=== PATIENT | female | born 1940 | race Caucasian/White ===

== ENCOUNTER 2017-12-05 12:37 | Inpatient (IN) | payer MEDICARE, OTHER ==
[~2017-12-05] VITALS: Ht 144.8 cm; Wt 77.1 kg
[2017-12-05] VITALS (9 sets, daily range): BP systolic 121–160; BP diastolic 57–67; PULSE 70–87; RESP 14–18; TEMP 97.7–98.3; O2SAT 97–100
[~2017-12-05 12:37] MED LIST: ATOR10 PO; BECL80AE3 INH; CALTTAB5 PO; CETI10 PO; COLE1TAB PO; FEXO180 PO; GLIM2TAB PO; IRONCAP PO; JANU50TA9 PO; OMEG120017 PO; PRIL40CA PO; RANI1TAB7 PO; TAB-TAB PO; TOPR50TA PO; VITA100017 PO
[2017-12-05 14:11] LABS: AUTOMATED NEUTROPHIL # 2.2 TH/MM3 (1.8-7.7); BASOPHIL % 1.3 % (0.0-2.0); EOSINOPHIL # 0.1 TH/MM3 (0-0.4); EOSINOPHIL % 1.5 % (0.0-4.0); HEMATOCRIT 22.6 % (35.0-46.0); LYMPH % 21.2 % (9.0-44.0); LYMPHOCYTE # 0.7 TH/MM3 (1.0-4.8); MEAN CORPUSCULAR HEMOGLOBIN 20.6 PG (27.0-34.0); MONO % 12.7 % (0.0-8.0); MONOCYTE # 0.4 TH/MM3 (0-0.9); NEUT % 63.3 % (16.0-70.0); PLATELET COUNT 102 TH/MM3 (150-450); RED BLOOD COUNT 3.28 MIL/MM3 (4.00-5.30); RED CELL DISTRIBUTION WIDTH 18.4 % (11.6-17.2); WHITE BLOOD COUNT 3.5 TH/MM3 (4.0-11.0)
[2017-12-05 14:12] LABS: MEAN CORPUSCULAR HGB CONC 29.9 % (32.0-36.0)
[2017-12-05 14:16] LABS: HEMOGLOBIN 6.8 GM/DL (11.6-15.3)
[2017-12-05 14:22] LABS: BACTERIA, URINE MANY /hpf; BILIRUBIN, URINE NEG (NEG); BLOOD, URINE NEG (NEG); GLUCOSE,URINE NEG (NEG); KETONE, URINE NEG (NEG); MUCUS URINE FEW /lpf (OCC); NITRITE,URINE POS (NEG); SQUAMOUS EPITHELIAL CELL URINE 5 /hpf (0-5); URINE COLOR YELLOW (YELLW/STRAW); URINE LEUKOCYTE ESTERASE MOD (NEG)
[2017-12-05 14:26] LABS: ALBUMIN 3.1 GM/DL (3.4-5.0); ALT (GPT) 50 U/L (10-53); AST (GOT) 48 U/L (15-37); BICARBONATE 20.2 MEQ/L (21.0-32.0); BLOOD UREA NITROGEN 12 MG/DL (7-18); CALCIUM 8.5 MG/DL (8.5-10.1); CHLORIDE 110 MEQ/L (98-107); CREATININE 0.89 MG/DL (0.50-1.00); GLOMERULAR FILTRATION RATE 62 ML/MIN (>89); GLUCOSE,RANDOM 199 MG/DL (74-106); SODIUM (NA) 141 MEQ/L (136-145)
[2017-12-05 14:27] LABS: INTERNATIONAL NORMALIZED RATIO 1.1 RATIO; PROTHROMBIN TIME - PATIENT 11.5 SEC (9.8-11.6)
[2017-12-05 14:37] LABS: ALKALINE PHOSPHATASE 108 U/L (45-117); TOTAL BILIRUBIN ADULT 1.1 MG/DL (0.2-1.0); TOTAL PROTEIN 6.7 GM/DL (6.4-8.2); TROPONIN I LESS THAN 0.02 NG/ML (0.02-0.05)
--- NOTE | 2017-12-05 14:39 | RADRPT ---
EXAM DATE/TIME: 12/05/2017 14:19 [place] COMPARISON: No previous studies available for comparison. INDICATIONS : Short of breath. MEDICAL HISTORY : Asthma. GAVE or watermelon stomach SURGICAL HISTORY : None. ENCOUNTER: Initial ACUITY: 1 day PAIN SCORE: 0/10 LOCATION: Bilateral chest FINDINGS: There is mild focal parenchymal opacity in the right middle lobe. Left lung is grossly clear. No effu denilson present. Cardiac contours are satisfactory. Thoracic skeleton is grossly intact. CONCLUSION: Mild right middle lobe infiltrate. Leonard Borja MD on December 05, 2017 at 14:36 Board Certified Radiologist. This report was verified electronically.
[2017-12-05] MEDS ORDERED: SODIUM CHLOR 0.9% 250 ML INJ 250 ML IV ONE (17:30)
[2017-12-05] MEDS ORDERED: cefTRIAXone INJ 1,000 MG in SODIUM CHLORIDE 0.9% INJ 100 ML IV ONE (17:30)
[2017-12-05] MEDS ORDERED: PANTOPRAZOLE INJ 80 MG in SODIUM CHLORIDE 0.9% INJ 100 ML IV SCH (17:36)
[2017-12-05] MEDS ORDERED: PANTOPRAZOLE INJ 80 MG in SODIUM CHLORIDE 0.9% INJ 35 ML IV ONE (17:36)
--- NOTE | 2017-12-05 17:54 | PD ---
HPI Chief Complaint: General Weakness Time Seen by Provider: 17:28 Travel History International Travel<30 days: No Contact w/Intl Traveler<30days: No Traveled to known affect area: No History of Present Illness HPI 76-year-old female states she has been feeling short of breath when she walks, tired and progressively weak over the past couple of weeks. She states she has a history of bleeding in her stomach and feels similar to how she felt then. She states her GI specialist is Dr. Martell in [place]. She denies other significant concurrent complaints at this time. She states when this happened in 2013 she had a blood transfusion and had cauterization of her stomach. She feels worse when she moves around. She denies other modifying factors. Quality is tired. Location is generalized. PFSH Past Medical History Arthritis: Yes Asthma: Yes Autoimmune Disease: No Blood Disorders: No Anxiety: Yes Depression: Yes Heart Rhythm Problems: Yes (A-FIB "EVENT" 2005) Cancer: No Cardiovascular Problems: No High Cholesterol: No Chest Pain: No Congestive Heart Failure: No COPD: No Cerebrovascular Accident: No Diabetes: Yes Endocrine: No Gastrointestinal Disorders: Yes (REFLUX, HX OF GI BLEEDS ) GERD: Yes Genitourinary: No (bladder suspension sx x 2 ) Hepatitis: No Hiatal Hernia: No Hypertension: Yes Immune Disorder: No Implanted Vascular Access Dvce: Yes Kidney Stones: No Musculoskeletal: Yes (ARTHRITIS, Rt TKR ) Neurologic: No Psychiatric: Yes Reproductive: Yes (hysterectomy ) Respiratory: Yes Migraines: No Renal Failure: No Seizures: No Sleep Apnea: No Thyroid Disease: No Ulcer: Yes (ONE ESOPHAGEAL ULCER RELATED TO GERD) : 4 Para: 4 Miscarriage: 0 : 0 Past Surgical History Abdominal Surgery: Yes (ANNETTE., ABDOMINOPLASTY) AICD: No Body Medical Devices: Right knee replacement Cardiac Surgery: Yes (RIGHT KNEE REPLACEMENT 2008) Ear Surgery: No Endocrine Surgery: No Eye Surgery: No Genitourinary Surgery: Yes (BLADDER SUSPENSION 1983) Gynecologic Surgery: Yes (HYSTERECTOMY, BLADDER SUSP.) Hysterectomy: Yes Insulin Pump: No Joint Replacement: Yes (RIGHT KNEE) Oral Surgery: No Pacemaker: No Thoracic Surgery: No Other Surgery: Yes Social History Alcohol Use: No Tobacco Use: No Substance Use: No Allergies-Medications (Allergen,Severity, Reaction): Coded Allergies: Sulfa (Sulfonamide Antibiotics) (Unverified Allergy, Severe, HIVES, ) candesartan (Unverified Allergy, Severe, HIVES, 07/12/17) escitalopram (Unverified Allergy, Severe, PALPITATIONS, 07/12/17) insulin aspart (Unverified Allergy, Severe, HIVES, 07/12/17) AFTER TAKING LEVIMIR FOR 1 MONTH AND ANY OTHER "PEN" INSULINS PT DEVELOPS HIVES insulin aspart protamine human (Unverified Allergy, Severe, HIVES, 07/12/17 ) AFTER TAKING LEVIMIR FOR 1 MONTH AND ANY OTHER "PEN" INSULINS PT DEVELOPS HIVES insulin detemir (Unverified Allergy, Severe, HIVES, 07/12/17) AFTER TAKING LEVIMIR FOR 1 MONTH AND ANY OTHER "PEN" INSULINS PT DEVELOPS HIVES insulin glargine (Unverified Allergy, Severe, HIVES, 07/12/17) AFTER TAKING LEVIMIR FOR 1 MONTH AND ANY OTHER "PEN" INSULINS PT DEVELOPS HIVES insulin isophane (NPH) (Unverified Allergy, Severe, HIVES, 07/12/17) AFTER TAKING LEVIMIR FOR 1 MONTH AND ANY OTHER "PEN" INSULINS PT DEVELOPS HIVES insulin lispro (Unverified Allergy, Severe, HIVES, 07/12/17) AFTER TAKING LEVIMIR FOR 1 MONTH AND ANY OTHER "PEN" INSULINS PT DEVELOPS HIVES insulin regular (Unverified Allergy, Severe, HIVES, 07/12/17) AFTER TAKING LEVIMIR FOR 1 MONTH AND ANY OTHER "PEN" INSULINS PT DEVELOPS HIVES lisinopril (Unverified Allergy, Severe, HIVES, 07/12/17) valsartan (Unverified Allergy, Severe, HIVES, 07/12/17) aliskiren (Unverified Allergy, Intermediate, Hives, 07/12/17) carvedilol (Unverified Adverse Reaction, Intermediate, PALPITATIONS, ) Reported Meds & Prescriptions Reported Meds & Active Scripts Active Reported Vitamin C (Ascorbic Acid) 1,000 Mg Tab 1,000 Mg PO DAILY Qvar (Beclomethasone Dipropionate) 80 Mcg/Act Aer 1 Puff INH BID Iron Formula (Iron W/ Folic Acid & Vit B12) Cap 65 Mg PO DAILY Calcium (Calcium Carbonate) 600 Mg Tab 600 Mg PO BID Fish Oil Maximum Strength ([place]-3 Fatty Acids) 1,200 Mg Cap 1,200 Mg PO BID Zyrtec 10 Mg Tab (Cetirizine HCl) 10 Mg Tab 10 Mg PO DAILY Ranitidine 150 Max Strength (Ranitidine HCl) 150 Mg Tab 1 Tab PO DAILY Prilosec 40 mg cap (Omeprazole) 40 Mg Cap 40 Mg PO BID Toprol Xl (Metoprolol Succinate) 50 Mg Tabcr 50 Mg PO BID Janumet (Sitagliptin Phosphate/Metformin HCl) 1 Tab Tab 1 Tab PO HS Glimepiride 2 Mg Tab 2 Mg PO BID Luiza Allergy (Fexofenadine Hcl) 180 Mg Tab 180 Mg PO DAILY PRN Lipitor (Atorvastatin Calcium) 10 Mg Tab 5 Mg PO DAILY Colestid (Colestipol HCl) 1 Gm Tab 1 Gm PO BID Multivitamin (Multivitamins) 1 Tab Tab 1 Tab PO DAILY Review of Systems Except as stated in HPI: all other systems reviewed are Neg Physical Exam Narrative GENERAL: Well-nourished, well-developed patient. Well-appearing SKIN: Warm and dry. HEAD: Normocephalic and atraumatic. EYES: No injection or drainage. ENT: No nasal drainage noted. NECK: Supple, trachea midline. CARDIOVASCULAR: Regular rate and rhythm RESPIRATORY: Breath sounds equal bilaterally. No accessory muscle use. GASTROINTESTINAL: Abdomen soft, non-tender, nondistended. RECTAL EXAM: Performed with terminal makeup operator and after permission. No external hemorrhoid or fissure, stool is brown, non-bloody. NEUROLOGICAL: Awake and alert. Motor and sensory grossly within normal limits. Normal speech. Data Data Last Documented VS Vital Signs Date Time Temp Pulse Resp B/P (MAP) Pulse Ox O2 Delivery O2 Flow Rate FiO2 12/05/17 12:40 97.7 87 16 160/67 (98) 97 Orders Orders Electrocardiogram (12/05/17 13:21) Prothrombin Time / Inr (Pt) (12/05/17 13:21) Act Partial Throm Time (Ptt) (12/05/17 13:21) Complete Blood Count With Diff (12/05/17 13:21) Comprehensive Metabolic Panel (12/05/17 13:21) Troponin I (12/05/17 13:21) Thyroid Stimulating Hormone (12/05/17 13:21) Free Thyroxine (T4) (12/05/17 13:21) Urinalysis - C+S If Indicated (12/05/17 13:21) Chest, Pa & Lat (12/05/17 ) B-Type Natriuretic Peptide (12/05/17 13:23) Urine Culture (12/05/17 13:45) Red Blood Cells (Rbc) (12/05/17 17:28) Blood Product Administration (12/05/17 17:28) Sodium Chlor 0.9% 250 Ml Inj (Ns 250 Ml (12/05/17 17:30) Ceftriaxone Inj (Rocephin Inj) (12/05/17 17:30) Type And Screen (12/05/17 17:28) Sodium Chloride 0.9... W/Pantoprazole In (12/05/17 17:36) Sodium Chloride 0.9... W/Pantoprazole In (12/05/17 17:36) Admit Order (Ed Use Only) (12/05/17 17:46) Labs Laboratory Tests Test 12/05/17 13:45 White Blood Count 3.5 TH/MM3 Red Blood Count 3.28 MIL/MM3 Hemoglobin 6.8 GM/DL Hematocrit 22.6 % Mean Corpuscular Volume 69.0 FL Mean Corpuscular Hemoglobin 20.6 PG Mean Corpuscular Hemoglobin Concent 29.9 % Red Cell Distribution Width 18.4 % Platelet Count 102 TH/MM3 Mean Platelet Volume 11.0 FL Neutrophils (%) (Auto) 63.3 % Lymphocytes (%) (Auto) 21.2 % Monocytes (%) (Auto) 12.7 % Eosinophils (%) (Auto) 1.5 % Basophils (%) (Auto) 1.3 % Neutrophils # (Auto) 2.2 TH/MM3 Lymphocytes # (Auto) 0.7 TH/MM3 Monocytes # (Auto) 0.4 TH/MM3 Eosinophils # (Auto) 0.1 TH/MM3 Basophils # (Auto) 0.0 TH/MM3 CBC Comment AUTO DIFF Differential Comment AUTO DIFF CONFIRMED Platelet Estimate LOW Platelet Morphology Comment ENLARGED Prothrombin Time 11.5 SEC Prothromb Time International Ratio 1.1 RATIO Activated Partial Thromboplast Time 19.1 SEC Urine Color YELLOW Urine Turbidity HAZY Urine pH 6.0 Urine Specific [place] 1.022 Urine Protein 30 mg/dL Urine Glucose (UA) NEG mg/dL Urine Ketones NEG mg/dL Urine Occult Blood NEG Urine Nitrite POS Urine Bilirubin NEG Urine Urobilinogen LESS THAN 2.0 MG/DL Urine Leukocyte Esterase MOD Urine RBC 2 /hpf Urine WBC 17 /hpf Urine Squamous Epithelial Cells 5 /hpf Urine Bacteria MANY /hpf Urine Mucus FEW /lpf Microscopic Urinalysis Comment CULTURE INDICATED Blood Urea Nitrogen 12 MG/DL Creatinine 0.89 MG/DL Random Glucose 199 MG/DL Total Protein 6.7 GM/DL Albumin 3.1 GM/DL Calcium Level 8.5 MG/DL Alkaline Phosphatase 108 U/L Aspartate Amino Transf (AST/SGOT) 48 U/L Alanine Aminotransferase (ALT/SGPT) 50 U/L Total Bilirubin 1.1 MG/DL Sodium Level 141 MEQ/L Potassium Level 4.0 MEQ/L Chloride Level 110 MEQ/L Carbon Dioxide Level 20.2 MEQ/L Anion Gap 11 MEQ/L Estimat Glomerular Filtration Rate 62 ML/MIN Troponin I LESS THAN 0.02 NG/ML Free Thyroxine 1.30 NG/DL Thyroid Stimulating Hormone 3rd Gen 1.890 uIU/ML MDM Medical Decision Making Medical Screen Exam Complete: Yes Emergency Medical Condition: Yes Medical Record Reviewed: Yes (past history confirmed) Interpretation(s) CBC & BMP Diagram 12/05/17 13:45 Total Protein 6.7, Albumin 3.1 L, Calcium Level 8.5, Alkaline Phosphatase 108, Aspartate Amino Transf (AST/SGOT) 48 H, Alanine Aminotransferase (ALT/SGPT) 50, Total Bilirubin 1.1 H UA with UTI Last 24 hours Impressions Chest X-Ray 12/05/17 0000 Signed Impressions: Service Date/Time: Tuesday, December 05, 2017 14:19 - CONCLUSION: Mild right middle lobe infiltrate. Leonard Borja MD Differential Diagnosis GI bleed, renal failure, anemia, UTI... Narrative Course Workup from triage reveals possible pneumonia and urinary tract infection. Patient was given Rocephin and azithromycin to cover for both. Patient also has critical anemia at 6.8. We'll place on Protonix and start 2 units of blood. We'll admit to the hospital for further care. Patient is in agreement to plan Critical Care Narrative Aggregate critical care time was 31 minutes. Time to perform other separately billable procedures was not included in the critical care time. My time did not include minutes spent treating any other patients simultaneously or on activities that did not directly contribute to the patient's treatment. The services I provided to this patient were to treat and/or prevent clinically significant deterioration that could result in: Shock, I provided critical care services requiring my management, as noted below: Chart data review, documentation time, medication orders and management, vital sign assessments/reviewing monitor data, ordering and reviewing lab tests, ordering and interpreting/reviewing x-rays and diagnostic studies, care of the patient and discussion of the patient with the admitting physicians. Physician Communication Physician Communication dr roach agrees to admit Diagnosis Primary Impression: GI (gastrointestinal bleed) Qualified Codes: K92.2 - Gastrointestinal hemorrhage, unspecified Additional Impressions: Anemia Qualified Codes: D64.9 - Anemia, unspecified UTI (urinary tract infection) Qualified Codes: N39.0 - Urinary tract infection, site not specified Pulmonary infiltrate in right lung on CXR Admitting Information Admitting Physician Requests: Admit Marzena Espinoza MD Dec 05, 2017 17:54
[2017-12-05] MEDS ORDERED: VITA250C3 PO (18:00)
[2017-12-05] MEDS ORDERED: AZITHROMYCIN INJ 500 MG in SODIUM CHLOR 0.9% 250 ML INJ 250 ML IV ONE (18:00)
[2017-12-05] MEDS ORDERED: ONDANSETRON HCL 4 MG/2 ML VIAL IVP PRN (18:00)
[2017-12-05] MEDS ORDERED: BECL80AE3 INH (18:00)
[2017-12-05] MEDS ORDERED: SPIR25TA PO (18:00)
[2017-12-05] MEDS ORDERED: COLE1TAB2 PO (18:00)
[2017-12-05] MEDS ORDERED: MAGNESIUM HYDROXIDE SUSP 30 ML CUP PO PRN (18:00)
[2017-12-05] MEDS ORDERED: BYST10TA2 PO (18:00)
[2017-12-05] MEDS ORDERED: DICY20TA10 PO (18:00)
[2017-12-05] MEDS ORDERED: RANI150T PO (18:00)
[2017-12-05] MEDS ORDERED: ZOFR4TAB PO (18:00)
[2017-12-05] MEDS ORDERED: MONT10TA4 PO (18:00)
[2017-12-05] MEDS ORDERED: SODIUM CHLORIDE 0.9% FLUSH 10 ML FLUSH IV FLUSH PRN (18:00)
[2017-12-05] MEDS ORDERED: ALBUAER3 INH (18:00)
[2017-12-05] MEDS ORDERED: zyrtec PO (18:00)
[2017-12-05] MEDS ORDERED: LACTULOSE SYRUP 20 GM/30 ML CUP PO PRN (18:00)
[2017-12-05] MEDS ORDERED: OMEP40CA2 PO (18:00)
[2017-12-05] MEDS ORDERED: GLIM4TAB PO (18:00)
[2017-12-05] MEDS ORDERED: ATOR10TA15 PO (18:00)
[2017-12-05] MEDS ORDERED: ACETAMINOPHEN 325 MG TAB PO PRN (18:00)
[2017-12-05] MEDS ORDERED: SITA50TA4 PO (18:00)
[2017-12-05] MEDS ORDERED: BISACODYL 10 MG SUPP RECTAL PRN (18:00)
[2017-12-05] MEDS ORDERED: NALOXONE HCL 0.4 MG/ML AMP IV PUSH PRN (18:00)
[2017-12-05] MEDS ORDERED: SENNOSIDES 8.6 MG TAB PO PRN (18:00)
[2017-12-05] MEDS ORDERED: OMEGCAP PO (18:00)
[2017-12-05] MEDS ORDERED: [UNRECOGNIZED DRUG - OTHER] (18:01)
[2017-12-05] MEDS: PANTOPRAZOLE SOD 40 MG DELAYED RELEASE TAB PO SCH (23:08)
[2017-12-05] MEDS: SODIUM CHLORIDE 0.9% FLUSH 10 ML FLUSH IV FLUSH SCH (23:09)
--- NOTE | 2017-12-05 23:40 | HHI.HP ---
HPI Service [facility] Primary Care Physician Nery Rivera D.O. Admission Diagnosis anemia, uti, gi bleed Diagnoses: Travel History International Travel<30 Days: No Contact w/Intl Traveler <30 Da: No Traveled to Known Affected Are: No History of Present Illness History from patient, ER notes, review of medical records. 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 no blood in urine no nausea or vomiting not on blood thinners no abdominal pain Review of Systems Except as stated in HPI: all other systems reviewed are Neg Past Family Social History Past Medical History hyperlipidemia htn dm afib- DR Leone - not on blood thinners per patient due to GI bleed, low platelets pancytopenia- used to follow up with DR Munoz - till 2014 asthma cirrhosis hypersplenism hepatosplenomegaly hx of CVA by imaging studies Past Surgical History Right knee replacements in 2008 EGD/colonoscopy Cholecystectomy 1981 Abdominoplasty Hysterectomy Bladder suspension surgery Allergies: Coded Allergies: Sulfa (Sulfonamide Antibiotics) (Unverified Allergy, Severe, HIVES, 12/05/17 ) candesartan (Unverified Allergy, Severe, HIVES, 12/05/17) escitalopram (Unverified Allergy, Severe, PALPITATIONS, 12/05/17) insulin aspart (Unverified Allergy, Severe, HIVES, 12/05/17) AFTER TAKING LEVIMIR FOR 1 MONTH AND ANY OTHER "PEN" INSULINS PT DEVELOPS HIVES insulin aspart protamine human (Unverified Allergy, Severe, HIVES, 12/05/17) AFTER TAKING LEVIMIR FOR 1 MONTH AND ANY OTHER "PEN" INSULINS PT DEVELOPS HIVES insulin detemir (Unverified Allergy, Severe, HIVES, 12/05/17) AFTER TAKING LEVIMIR FOR 1 MONTH AND ANY OTHER "PEN" INSULINS PT DEVELOPS HIVES insulin glargine (Unverified Allergy, Severe, HIVES, 12/05/17) AFTER TAKING LEVIMIR FOR 1 MONTH AND ANY OTHER "PEN" INSULINS PT DEVELOPS HIVES insulin isophane (NPH) (Unverified Allergy, Severe, HIVES, 12/05/17) AFTER TAKING LEVIMIR FOR 1 MONTH AND ANY OTHER "PEN" INSULINS PT DEVELOPS HIVES insulin lispro (Unverified Allergy, Severe, HIVES, 12/05/17) AFTER TAKING LEVIMIR FOR 1 MONTH AND ANY OTHER "PEN" INSULINS PT DEVELOPS HIVES insulin regular (Unverified Allergy, Severe, HIVES, 12/05/17) AFTER TAKING LEVIMIR FOR 1 MONTH AND ANY OTHER "PEN" INSULINS PT DEVELOPS HIVES lisinopril (Unverified Allergy, Severe, HIVES, 12/05/17) valsartan (Unverified Allergy, Severe, HIVES, 12/05/17) aliskiren (Unverified Allergy, Intermediate, Hives, 12/05/17) carvedilol (Unverified Adverse Reaction, Intermediate, PALPITATIONS, ) Family History multiple members with heart dx Social History used to smoke , quit 1970 no etoh abuse or drug abuse lives with still driving Physical Exam Vital Signs Vital Signs Date Time Temp Pulse Resp B/P (MAP) Pulse Ox O2 Delivery O2 Flow Rate FiO2 12/05/17 23:32 12/05/17 23:05 98.3 74 14 125/60 99 12/05/17 22:35 98.2 75 14 121/59 99 12/05/17 22:05 98.3 71 14 122/61 99 12/05/17 21:35 98.1 76 14 148/65 100 12/05/17 21:20 98.1 74 14 131/63 100 12/05/17 21:05 98.3 70 14 132/60 99 12/05/17 20:50 98.3 72 14 132/59 99 12/05/17 12:40 97.7 87 16 160/67 (98) 97 Physical Exam GENERAL: This is a well-nourished, well-developed patient, in no apparent distress. SKIN: No rashes, ecchymoses or lesions. Cool and dry. HEAD: Atraumatic. Normocephalic. No temporal or scalp tenderness. EYES: No scleral icterus. No injection or drainage. ENT: Nose without bleeding, purulent drainage or septal hematoma. Airway patent. NECK: Trachea midline. No JVD CARDIOVASCULAR: Regular rate and rhythm without murmurs, gallops, or rubs. RESPIRATORY: Clear to auscultation. Breath sounds equal bilaterally. No wheezes , rales, or rhonchi. GASTROINTESTINAL: Abdomen soft, non-tender, nondistended.. No guarding. Hepatosplenomegaly MUSCULOSKELETAL: Extremities without clubbing, cyanosis, or edema. . No calf tenderness. NEUROLOGICAL: Awake and alert. No focal deficits. Normal speech. Hard of hearing. Laboratory Laboratory Tests Test 12/05/17 13:45 White Blood Count 3.5 Red Blood Count 3.28 Hemoglobin 6.8 Hematocrit 22.6 Mean Corpuscular Volume 69.0 Mean Corpuscular Hemoglobin 20.6 Mean Corpuscular Hemoglobin Concent 29.9 Red Cell Distribution Width 18.4 Platelet Count 102 Mean Platelet Volume 11.0 Neutrophils (%) (Auto) 63.3 Lymphocytes (%) (Auto) 21.2 Monocytes (%) (Auto) 12.7 Eosinophils (%) (Auto) 1.5 Basophils (%) (Auto) 1.3 Neutrophils # (Auto) 2.2 Lymphocytes # (Auto) 0.7 Monocytes # (Auto) 0.4 Eosinophils # (Auto) 0.1 Basophils # (Auto) 0.0 CBC Comment AUTO DIFF Differential Comment AUTO DIFF CONFIRMED Platelet Estimate LOW Platelet Morphology Comment ENLARGED Prothrombin Time 11.5 Prothromb Time International Ratio 1.1 Activated Partial Thromboplast Time 19.1 Urine Color YELLOW Urine Turbidity HAZY Urine pH 6.0 Urine Specific [place] 1.022 Urine Protein 30 Urine Glucose (UA) NEG Urine Ketones NEG Urine Occult Blood NEG Urine Nitrite POS Urine Bilirubin NEG Urine Urobilinogen LESS THAN 2.0 Urine Leukocyte Esterase MOD Urine RBC 2 Urine WBC 17 Urine Squamous Epithelial Cells 5 Urine Bacteria MANY Urine Mucus FEW Microscopic Urinalysis Comment CULTURE INDICATED Blood Urea Nitrogen 12 Creatinine 0.89 Random Glucose 199 Total Protein 6.7 Albumin 3.1 Calcium Level 8.5 Alkaline Phosphatase 108 Aspartate Amino Transf (AST/SGOT) 48 Alanine Aminotransferase (ALT/SGPT) 50 Total Bilirubin 1.1 Sodium Level 141 Potassium Level 4.0 Chloride Level 110 Carbon Dioxide Level 20.2 Anion Gap 11 Estimat Glomerular Filtration Rate 62 Troponin I LESS THAN 0.02 B-Type Natriuretic Peptide 280 Free Thyroxine 1.30 Thyroid Stimulating Hormone 3rd Gen 1.890 Date/Time Source Procedure Growth Status 12/05/17 18:20 Blood Peripheral Aerobic Blood Culture Pending Received 12/05/17 18:20 Blood Peripheral Anaerobic Blood Culture Pending Received 12/05/17 13:45 Urine Clean Catch Urine Culture Pending Received Result Diagram: 12/05/17 1345 12/05/17 1345 Imaging Last 48 hours Impressions Chest X-Ray 12/05/17 0000 Signed Impressions: Service Date/Time: Tuesday, December 05, 2017 14:19 - CONCLUSION: Mild right middle lobe infiltrate. Lenoard Borja MD [place] VTE Risk Assessment [place] VTE Risk Assessment: Mod/High Risk (score >= 2) Caprini Risk Assessment Model Point Value = 1 Point Value = 2 Point Value = 3 Point Value = 5 Age 41-60 Minor surgery BMI > 25 kg/m2 Swollen legs Varicose veins or History of unexplained or recurrent spontaneous Oral contraceptives or hormone replacement Sepsis (< 1 month) Serious lung disease, including pneumonia (< 1 month) Abnormal pulmonary function Acute myocardial infarction Congestive heart failure (< 1 month) History of inflammatory bowel disease Medical patient at bed rest Age 61-74 Arthroscopic surgery Major open surgery (> 45 min) Laparoscopic surgery (> 45 min) Malignancy Confined to bed (> 72 hours) Immobilizing plaster cast Central venous access Age >= 75 History of VTE Family history of VTE Factor V Leiden Prothrombin [id number] Lupus anticoagulant Anticardiolipin antibodies Elevated serum homocysteine Heparin-induced thrombocytopenia Other congenital or acquired thrombophilia Stroke (< 1 month) Elective arthroplasty Hip, pelvis, or leg fracture Acute spinal cord injury (< 1 month) Prophylaxis Regimen Total Risk Factor Score Risk Level Prophylaxis Regimen 0-1 Low Early ambulation 2 Moderate Order ONE of the following: *Sequential Compression Device (SCD) *Heparin 5000 units SQ BID 3-4 Higher Order ONE of the following medications: *Heparin 5000 units SQ TID *Enoxaparin/Lovenox 40 mg SQ daily (WT < 150 kg, CrCl > 30 mL/min) *Enoxaparin/Lovenox 30 mg SQ daily (WT < 150 kg, CrCl > 10-29 mL/min) *Enoxaparin/Lovenox 30 mg SQ BID (WT < 150 kg, CrCl > 30 mL/min) AND/OR *Sequential Compression Device (SCD) 5 or more Highest Order ONE of the following medications: *Heparin 5000 units SQ TID (Preferred with Epidurals) *Enoxaparin/Lovenox 40 mg SQ daily (WT < 150 kg, CrCl > 30 mL/min) *Enoxaparin/Lovenox 30 mg SQ daily (WT < 150 kg, CrCl > 10-29 mL/min) *Enoxaparin/Lovenox 30 mg SQ BID (WT < 150 kg, CrCl > 30 mL/min) AND *Sequential Compression Device (SCD) Assessment and Plan Assessment and Plan Impression: Symptomatic anemia. Possible GI bleed. Pancytopenia. Chronic. hyperlipidemia htn dm afib- DR Leone - not on blood thinners per patient due to GI bleed, low platelets pancytopenia- used to follow up with DR Munoz - till 2014 asthma cirrhosis hypersplenism hepatosplenomegaly hx of CVA by imaging studies Plan: PPI. GI consulted. Watch for fluid overload. Patient is currently receiving blood transfusion. Type and screen. Transfuse for 2 units of PRBC. Hold long-acting insulin and oral hypoglycemics. Monitor fingersticks closely. Resume other home meds DVT prophylaxis with SCD. Discussed Condition With patient, nursing staff Physician Certification 2 Midnight Certification Type: Admission for Inpatient Services Order for Inpatient Services The services are ordered in accordance with Medicare regulations or non- Medicare payer requirements, as applicable. In the case of services not specified as inpatient-only, they are appropriately provided as inpatient services in accordance with the 2-midnight benchmark. Estimated LOS (days): 2 days is the estimated time the patient will need to remain in the hospital, assuming treatment plan goals are met and no additional complications. Post-Hospital Plan: Home Abbi Gibbs MD Dec 05, 2017 23:40
[2017-12-06] VITALS (14 sets, daily range): BP systolic 103–149; BP diastolic 50–65; PULSE 69–78; RESP 16–18; TEMP 97.2–98.3; O2SAT 94–99
[2017-12-06] MEDS ORDERED: DEXTROSE 50% IN WATER 50 ML VIAL(D50) IV PUSH PRN ×2 (01:30→07:45)
[2017-12-06] MEDS ORDERED: ONDANSETRON ODT 4 MG TAB PO PRN (01:30)
[2017-12-06] MEDS ORDERED: GLUCAGON 1 MG/ML VIAL OTHER PRN ×2 (01:30→07:45)
[2017-12-06] MEDS: SODIUM CHLORIDE 0.9% FLUSH 10 ML FLUSH IV FLUSH SCH ×2 (07:45→20:29)
[2017-12-06] MEDS: INSULIN ASPART SUPPLEMENTAL SCALE SQ SCH ×4 (08:00→20:30)
[2017-12-06] MEDS: SPIRONOLACTONE 25 MG TAB PO SCH (08:26)
[2017-12-06] MEDS: PANTOPRAZOLE SOD 40 MG DELAYED RELEASE TAB PO SCH ×2 (08:26→20:28)
[2017-12-06 10:26] LABS: AUTOMATED NEUTROPHIL # 2.2 TH/MM3 (1.8-7.7); BASOPHIL % 1.1 % (0.0-2.0); EOSINOPHIL # 0.1 TH/MM3 (0-0.4); EOSINOPHIL % 2.6 % (0.0-4.0); HEMATOCRIT 27.8 % (35.0-46.0); HEMOGLOBIN 8.7 GM/DL (11.6-15.3); LYMPH % 27.6 % (9.0-44.0); LYMPHOCYTE # 1.1 TH/MM3 (1.0-4.8); MEAN CELL VOLUME 72.3 FL (80.0-100.0); MEAN CORPUSCULAR HEMOGLOBIN 22.7 PG (27.0-34.0); MEAN CORPUSCULAR HGB CONC 31.4 % (32.0-36.0); MEAN PLATELET VOLUME 10.5 FL (7.0-11.0); MONO % 11.9 % (0.0-8.0); MONOCYTE # 0.5 TH/MM3 (0-0.9); NEUT % 56.8 % (16.0-70.0); PLATELET COUNT 84 TH/MM3 (150-450); RED BLOOD COUNT 3.84 MIL/MM3 (4.00-5.30); WHITE BLOOD COUNT 3.9 TH/MM3 (4.0-11.0)
[2017-12-06 10:49] LABS: BICARBONATE 20.6 MEQ/L (21.0-32.0); CALCIUM 8.6 MG/DL (8.5-10.1); CREATININE 0.75 MG/DL (0.50-1.00)
[2017-12-06] MEDS: DICYCLOMINE HCL 20 MG TAB PO SCH ×3 (10:51→17:17)
[2017-12-06] MEDS: BECLOMETHASONE DIPROPIONATE 80 MCG/ACT 8.7 GM INHALER INH SCH ×2 (10:51→20:28)
[2017-12-06] MEDS: COLESTIPOL HCL 5 GM PACKET PO SCH ×2 (10:51→21:28)
--- NOTE | 2017-12-06 11:17 | HHI.PR ---
Subjective Remarks Follow up Symptomatic Anemia 12/06/17-patient seen and examined, Denies any GI bleed and she was transfused 2 units PRBC Objective Vitals Vital Signs Date Time Temp Pulse Resp B/P (MAP) Pulse Ox O2 Delivery O2 Flow Rate FiO2 12/06/17 04:00 98.1 73 18 103/50 (67) 94 12/06/17 03:50 98.0 78 18 138/61 97 12/06/17 03:47 Room Air 12/06/17 03:47 71 12/06/17 00:50 98.0 78 18 136/65 97 12/06/17 00:50 76 12/06/17 00:41 98.3 75 18 133/61 97 12/06/17 00:00 98.3 75 18 133/61 97 12/06/17 00:00 98.0 78 16 131/57 (81) 97 12/05/17 23:58 98.0 79 18 131/57 97 12/05/17 23:32 12/05/17 23:05 98.3 74 14 125/60 99 12/05/17 22:35 98.2 75 14 121/59 99 12/05/17 22:05 98.3 71 14 122/61 99 12/05/17 21:35 98.1 76 14 148/65 100 12/05/17 21:20 98.1 74 14 131/63 100 12/05/17 21:05 98.3 70 14 132/60 99 12/05/17 20:50 98.3 72 14 132/59 99 12/05/17 12:40 97.7 87 16 160/67 (98) 97 I/O 12/05/17 12/05/17 12/05/17 12/06/17 12/06/17 12/06/17 07:00 15:00 23:00 07:00 15:00 23:00 Intake Total 415 ml 1500 ml Output Total 1400 ml Balance 415 ml 100 ml Intake IV Total 385 ml Packed Cells 1500 ml Blood Product IV Normal Saline Flush 30 ml Output Urine Total 1400 ml Result Diagram: 12/06/1791912/06/17919 Imaging Last Impressions Chest X-Ray 12/05/17 0000 Signed Impressions: Service Date/Time: Tuesday, December 05, 2017 14:19 - CONCLUSION: Mild right middle lobe infiltrate. Leonard Borja MD Objective Remarks GENERAL: NAD SKIN: Warm and dry. HEAD: Normocephalic. EYES: No scleral icterus. No injection or drainage. NECK: Supple, trachea midline. No JVD or lymphadenopathy. CARDIOVASCULAR: Regular rate and rhythm without murmurs, gallops, or rubs. RESPIRATORY: Breath sounds equal bilaterally. No accessory muscle use. GASTROINTESTINAL: Abdomen soft, non-tender, nondistended. MUSCULOSKELETAL: No cyanosis, or edema. BACK: Nontender without obvious deformity. No CVA tenderness. A/P Problem List: (1) Symptomatic anemia ICD Code: D64.9 - Anemia, unspecified (2) GI bleeding ICD Code: K92.2 - Gastrointestinal hemorrhage, unspecified Status: Acute Assessment and Plan 76 years old female with Symptomatic anemia. Possible GI bleeding Transfused 2 units PRBC and monitor H/H GI consultation pending for possible Panendoscopy Continue with PPI Keep NPO Pancytopenia. Chronic and Follow up with Hematology outpatient Other chronic medical conditions including Hyperlipidemia/HTN/COPD Continue with outpatient medications Diabetes Mellitus Continue to hold Oral hypoglycemic agents caution with ISS. I had a discussion with the patient regarding her alleged allergy to Insulin, however states she can tolerate a low dose ISS Afib- DR Leone - not on blood thinners per patient due to GI bleed, low platelets Cirrhosis /Hypersplenism Hepatosplenomegaly hx of CVA by imaging studies DVT prophylaxis with SCD. GI prophylaxis: PPI Conner Cr MD Dec 06, 2017 11:17
[2017-12-06] MEDS ORDERED: PROPOFOL 200 MG/20 ML AMP IV ONE (12:00)
[2017-12-06] MEDS ORDERED: ePHEDrine/NS 25 MG/5 ML SYRINGE IV ONE (12:00)
[2017-12-06 12:09] LABS: OVALOCYTES 1+ (NORMAL); TEARDROP RBCS 1+ (NORMAL)
--- NOTE | 2017-12-06 12:34 | MB ---
cc: AILEEN ELDRIDGE SUNIL P. M.D. OUNG, TWETHIDA MD DATE OF CONSULTATION: 12/06/2017 DATE OF : 1940 REASON FOR CONSULTATION Asked to see the patient at the request of Dr. Gibbs for evaluation of anemia. HISTORY OF PRESENT ILLNESS The patient is a pleasant 76-year-old white female who in 2016 had an upper endoscopy and colonoscopy. The colonoscopy revealed adenomatous colon polyp and upper endoscopy showed watermelon stomach. She subsequently underwent upper endoscopy with Argon plasma cautery of the situation in the stomach. Unfortunately, over the last several weeks she has been feeling weak and tired and she came to the emergency room and hemoglobin was 6.8. She was heme-positive but had no black or red stools, stools are brown, per the patient. The patient was short of breath and dizzy but now after receiving blood she is doing quite well. A posttransfusion hemoglobin is still pending. The patient denies any dysphagia, odynophagia, nausea, vomiting, melena, hematochezia, diarrhea, constipation or fever or chills at this time. PAST MEDICAL HISTORY Significant for: 1. Pancytopenia. 2. Atrial fibrillation but she is not on any medication for this. 3. Diabetes mellitus. 4. Dyslipidemia. 5. Hypertension. 6. Asthma. 7. Hypersplenism. 8. Hepatosplenomegaly. 9. There is some question of cirrhosis (I have not been able to review old records yet). 10. She has also had CVA. 11. As mentioned above she has had colon polyps as well as watermelon stomach. PAST SURGICAL HISTORY 1. Upper endoscopy and colonoscopy. 2. She has had right knee replacement. 3. Cholecystectomy. 4. Abdominoplasty. 5. Bladder suspension. 6. Hysterectomy. ALLERGIES She has multiple allergies including SULFA, CANDESARTAN, ESCITALOPRAM, LEVEMIR, LISINOPRIL, VALSARTAN, CARVEDILOL, ALISKIREN. FAMILY HISTORY Noncontributory for this admission. SOCIAL HISTORY Quit smoking in the late 70s, smoked a number of years. Drinks no significant amounts of alcohol at this time. REVIEW OF SYSTEMS CONSTITUTIONAL: No weight loss, fever, chills. CARDIOPULMONARY: No chest pain, palpitations, wheezing. Her shortness of breath is better. GASTROINTESTINAL: Please see above. Otherwise, unremarkable ten-point review of systems. PHYSICAL EXAMINATION VITAL SIGNS: Blood pressure is 103/50, pulse 73, respiratory rate of 18, temperature 98.1. GENERAL: She is overweight white female resting comfortably at this time. No acute GI distress. HEENT: Pupils are equal, round and reactive to light. No obvious scleral icterus. Oropharynx clear, has dental caries. No tongue deviation or candidal lesion. Hearing is intact. NECK: Supple. No thyromegaly or lymphadenopathy. LUNGS: Clear to auscultation. HEART: Irregular rate and rhythm. No gross murmurs are heard. ABDOMEN: Soft, doughy, nondistended, nontender. No organomegaly. No ascites or hernias. EXTREMITIES: No cyanosis, clubbing or edema. Cranial nerves II-XII are grossly intact. No gross sensory deficit. RECTAL: I did not repeat a rectal exam on her. Apparently, in the emergency room it was heme positive. The stool is brown color. NEUROLOGIC: She is alert and oriented x 3. SKIN: Warm and dry. MEDICATION Outpatient: 1. Vitamin C. 2. Qvar. 3. Iron. 4. Calcium. 5. Fish oil. 6. Zyrtec. 7. Ranitadine. 8. Prilosec. 9. Toprol. 10. Janumet. 11. Glimepiride. 12. Luiza. 13. Lipitor. 14. Colestid. 15. Multivitamin. Inpatient medication: 1. Lipitor. 2. Singulair. 3. Bystolic. 4. Pepcid. 5. Qvar. 6. Bentyl. 7. Aldactone. 8. Colestipol. 9. NovoLog. 10. Glucagon. 11. Zofran. 12. Pantoprazole. 13. Milk of Magnesia. 14. Senokot. 15. Dulcolax. 16. Lactulose. IMPRESSION 1. Anemia with heme-positive stools - suspect this is related to her watermelon stomach. Other etiologies also include AVMs, ulcers, polyps, malignancies. Her last colonoscopy was 2015, so I think the chance of colon cancer is lower differential. The patient has anemia as mentioned above - she has been transfused blood, awaiting posttransfusion CBC. 2. adenomatous colon polyp. 3. History watermelon stomach. RECOMMENDATIONS 1. The patient does need upper endoscopy with APC. She is currently n.p.o. and would like to get it done in the hospital. We did talk about indications, risks, complications, benefits and limitation including risk of bleeding, perforation, infection, arrhythmias, as well as the possibility of . 2. We will see if the schedule allows today, if not today, we will do it tomorrow. 3. Further recommendations after upper endoscopy is done inpatient. MD CORINA Montana/TLL /10:23 AM /12:03 PM MTDD
[2017-12-06] MEDS ORDERED: POVIDONE IODINE 5% (ANTISEPSIS KIT) 4 APPLICATIONS EACH NARE PRN (15:00)
[2017-12-06] MEDS ORDERED: METOPROLOL TARTRATE 25 MG TAB PO PRN (15:00)
[2017-12-06] MEDS ORDERED: SODIUM CHLORID 0.9% 500 ML IV PRN (15:00)
[2017-12-06] MEDS ORDERED: CHLORHEXIDINE GLUCONATE 2 % 1 PACK (2 CLOTHS) TOPICAL PRN (15:00)
[2017-12-06] MEDS ORDERED: LACTATED RINGER'S 1000 ML IV PRN (15:00)
--- NOTE | 2017-12-06 15:20 | GIPROC ---
[facility] [address] [facility]. [facility], [address] EGD PROCEDURE REPORT EXAM DATE: 12/06/2017 PATIENT NAME: Natalia Rivera MR #: [id number] BIRTHDATE: 1940 ATTENDING: Steven Tomlinson MD ORDER #: [id number] PLUMBER'S ASSISTANT: Geri Gonsales and Miguel A Hallman STATUS: inpatient INDICATIONS: The patient is a 76 yr old female here for an EGD due to OB+ stools, Anemia, Hx of GAVE PROCEDURE PERFORMED: EGD w/ control of bleeding MEDICATIONS: None and Per Anesthesia. TOPICAL ANESTHETIC: none CONSENT: The patient understands the risks and benefits of the procedure and understands that these risks include, but are not limited to: sedation, allergic reaction, infection, perforation and/or bleeding. Alternative means of evaluation and treatment include, among others: physical exam, x-rays, and/or surgical intervention. The patient elects to proceed with this endoscopic procedure. medical equipment was checked for proper function. Hand hygiene and appropriate measures for infection prevention was taken. After the risks, benefits and alternatives of the procedure were thoroughly explained, Informed consent was verified, confirmed and timeout was successfully executed by the treatment team. The patient was anesthetized with topical anesthesia and the Pentax [id number] endoscope was introduced through the mouth and advanced to the third portion of the duodenum. Retroflexion was performed and was normal The gastroscope was then slowly withdrawn and removed. 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 Possible small grade I esophageal varicies were noted at the distal esophagus. 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 IMPRESSIONS: 1. 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 Possible small grade I esophageal varicies were noted at the distal esophagus 3. 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 Retroflexion was performed and was normal 5. Doudenitis of bulb RECOMMENDATIONS: 1. Hematocrit 2. Carafate 1 gm po qid ac PATIENT CONDITION: stable DISPOSITION: Inpatient REPEAT EXAM: Return 2 months EGD Steven Tomlinson MD eSigned: Steven Tomlinson MD 12/06/2017 3:19 PM cc: PATIENT NAME: Mohit Riveraline Karen MR#: [id number]
[2017-12-06] MEDS ORDERED: FLUMAZENIL 0.5 MG/5 ML VIAL IV PUSH PRN ×2 (15:30)
[2017-12-06] MEDS ORDERED: NALOXONE HCL 0.4 MG/ML AMP IV PUSH PRN (15:30)
[2017-12-06] MEDS: SUCRALFATE 1 GM TAB PO SCH ×2 (16:32→20:28)
[2017-12-06] MEDS: FAMOTIDINE 20 MG TAB PO SCH (20:27)
[2017-12-06] MEDS: NEBIVOLOL 10 MG TAB PO SCH (20:27)
[2017-12-06] MEDS: MONTELUKAST SODIUM 10 MG TAB PO SCH (20:28)
[2017-12-06] MEDS: ATORVASTATIN 10 MG TAB PO SCH (20:28)
--- NOTE | 2017-12-06 22:08 | EKG ---
Date Performed: 12/05/2017 Time Performed: 14:39:03 PTAGE: 76 years EKG: Sinus rhythm MINIMAL ST DEPRESSION BORDERLINE ECG PREVIOUS TRACING : 03/28/2014 16.48 Compared to prior tracing no significant change DOCTOR: Radhames Leigh Interpretating Date/Time 12/06/2017 22:07:09
[2017-12-07] VITALS (8 sets, daily range): BP systolic 101–151; BP diastolic 51–71; PULSE 66–82; RESP 16–21; TEMP 98.1–98.8; O2SAT 92–97
[2017-12-07] MEDS: INSULIN ASPART SUPPLEMENTAL SCALE SQ SCH ×4 (08:00→21:00)
[2017-12-07] MEDS: COLESTIPOL HCL 5 GM PACKET PO SCH ×2 (09:00→21:00)
[2017-12-07] MEDS: SODIUM CHLORIDE 0.9% FLUSH 10 ML FLUSH IV FLUSH SCH ×2 (09:00→21:32)
[2017-12-07] MEDS: cefTRIAXone INJ 1,000 MG in SODIUM CHLORIDE 0.9% INJ 100 ML IV SCH (10:00)
[2017-12-07] MEDS: SUCRALFATE 1 GM TAB PO SCH ×4 (10:14→21:00)
[2017-12-07] MEDS: SPIRONOLACTONE 25 MG TAB PO SCH (10:15)
[2017-12-07] MEDS: PANTOPRAZOLE SOD 40 MG DELAYED RELEASE TAB PO SCH ×2 (10:15→21:31)
[2017-12-07] MEDS: DICYCLOMINE HCL 20 MG TAB PO SCH ×3 (10:15→19:03)
[2017-12-07 13:07] LABS: AUTOMATED NEUTROPHIL # 2.8 TH/MM3 (1.8-7.7); BASOPHIL % 0.9 % (0.0-2.0); EOSINOPHIL # 0.1 TH/MM3 (0-0.4); EOSINOPHIL % 2.3 % (0.0-4.0); HEMOGLOBIN 9.1 GM/DL (11.6-15.3); LYMPH % 20.9 % (9.0-44.0); LYMPHOCYTE # 0.9 TH/MM3 (1.0-4.8); MEAN CELL VOLUME 72.8 FL (80.0-100.0); MEAN CORPUSCULAR HEMOGLOBIN 22.9 PG (27.0-34.0); MEAN CORPUSCULAR HGB CONC 31.5 % (32.0-36.0); MEAN PLATELET VOLUME 10.1 FL (7.0-11.0); MONO % 13.5 % (0.0-8.0); MONOCYTE # 0.6 TH/MM3 (0-0.9); NEUT % 62.4 % (16.0-70.0); PLATELET COUNT 85 TH/MM3 (150-450); RED BLOOD COUNT 3.98 MIL/MM3 (4.00-5.30); RED CELL DISTRIBUTION WIDTH 21.7 % (11.6-17.2); WHITE BLOOD COUNT 4.5 TH/MM3 (4.0-11.0)
[2017-12-07 13:10] LABS: BICARBONATE 24.6 MEQ/L (21.0-32.0); CALCIUM 8.5 MG/DL (8.5-10.1); CREATININE 0.78 MG/DL (0.50-1.00)
--- NOTE | 2017-12-07 17:26 | HHI.PR ---
Subjective Remarks Follow up Symptomatic Anemia 12/06/17-patient seen and examined, Denies any GI bleed and she was transfused 2 units PRBC 12-07 HAD PROCEDURE EGD ON 12-06 1. 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 Possible small grade I esophageal varicies were noted at the distal esophagus 3. 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 Retroflexion was performed and was normal 5. Doudenitis of bulb Objective Vitals Vital Signs Date Time Temp Pulse Resp B/P (MAP) Pulse Ox O2 Delivery O2 Flow Rate FiO2 12/07/17 16:00 98.3 66 20 125/58 (80) 97 12/07/17 12:00 98.1 66 20 135/62 (86) 95 12/07/17 11:16 21 12/07/17 08:00 98.1 75 20 103/53 (70) 92 12/07/17 08:00 82 12/07/17 08:00 96 Room Air 12/07/17 05:00 73 12/07/17 04:00 Room Air 12/07/17 04:00 98.4 71 16 101/71 (81) 94 12/07/17 00:00 98.5 82 16 108/51 (70) 94 12/07/17 00:00 Room Air 12/06/17 23:50 69 12/06/17 20:00 98.1 74 16 149/65 (93) 99 12/06/17 20:00 Room Air 12/06/17 19:59 75 I/O 12/06/17 12/06/17 12/06/17 12/07/17 12/07/17 12/07/17 07:00 15:00 23:00 07:00 15:00 23:00 Intake Total 1500 ml 670 ml 240 ml Output Total 1400 ml 500 ml Balance 100 ml 670 ml -260 ml Intake Oral 420 ml 240 ml Packed Cells 1500 ml Other 250 ml Output Urine Total 1400 ml 500 ml # Voids 5 2 # Bowel Movements 2 Result Diagram: 12/07/17 1140 12/07/17 1140 Other Results Laboratory Tests Test 12/05/17 13:45 12/06/17 09:20 12/07/17 11:40 White Blood Count 3.5 TH/MM3 3.9 TH/MM3 4.5 TH/MM3 Red Blood Count 3.28 MIL/MM3 3.84 MIL/MM3 3.98 MIL/MM3 Hemoglobin 6.8 GM/DL 8.7 GM/DL 9.1 GM/DL Hematocrit 22.6 % 27.8 % 29.0 % Mean Corpuscular Volume 69.0 FL 72.3 FL 72.8 FL Mean Corpuscular Hemoglobin 20.6 PG 22.7 PG 22.9 PG Mean Corpuscular Hemoglobin Concent 29.9 % 31.4 % 31.5 % Red Cell Distribution Width 18.4 % 21.0 % 21.7 % Platelet Count 102 TH/MM3 84 TH/MM3 85 TH/MM3 Mean Platelet Volume 11.0 FL 10.5 FL 10.1 FL Neutrophils (%) (Auto) 63.3 % 56.8 % 62.4 % Lymphocytes (%) (Auto) 21.2 % 27.6 % 20.9 % Monocytes (%) (Auto) 12.7 % 11.9 % 13.5 % Eosinophils (%) (Auto) 1.5 % 2.6 % 2.3 % Basophils (%) (Auto) 1.3 % 1.1 % 0.9 % Neutrophils # (Auto) 2.2 TH/MM3 2.2 TH/MM3 2.8 TH/MM3 Lymphocytes # (Auto) 0.7 TH/MM3 1.1 TH/MM3 0.9 TH/MM3 Monocytes # (Auto) 0.4 TH/MM3 0.5 TH/MM3 0.6 TH/MM3 Eosinophils # (Auto) 0.1 TH/MM3 0.1 TH/MM3 0.1 TH/MM3 Basophils # (Auto) 0.0 TH/MM3 0.0 TH/MM3 0.0 TH/MM3 CBC Comment AUTO DIFF AUTO DIFF AUTO DIFF Differential Comment AUTO DIFF CONFIRMED AUTO DIFF CONFIRMED AUTO DIFF CONFIRMED Platelet Estimate LOW LOW LOW Platelet Morphology Comment ENLARGED ENLARGED NORMAL Prothrombin Time 11.5 SEC Prothromb Time International Ratio 1.1 RATIO Activated Partial Thromboplast Time 19.1 SEC Urine Color YELLOW Urine Turbidity HAZY Urine pH 6.0 Urine Specific [place] 1.022 Urine Protein 30 mg/dL Urine Glucose (UA) NEG mg/dL Urine Ketones NEG mg/dL Urine Occult Blood NEG Urine Nitrite POS Urine Bilirubin NEG Urine Urobilinogen LESS THAN 2.0 MG/DL Urine Leukocyte Esterase MOD Urine RBC 2 /hpf Urine WBC 17 /hpf Urine Squamous Epithelial Cells 5 /hpf Urine Bacteria MANY /hpf Urine Mucus FEW /lpf Microscopic Urinalysis Comment CULTURE INDICATED Blood Urea Nitrogen 12 MG/DL 14 MG/DL 8 MG/DL Creatinine 0.89 MG/DL 0.75 MG/DL 0.78 MG/DL Random Glucose 199 MG/DL 72 MG/DL 134 MG/DL Total Protein 6.7 GM/DL Albumin 3.1 GM/DL Calcium Level 8.5 MG/DL 8.6 MG/DL 8.5 MG/DL Alkaline Phosphatase 108 U/L Aspartate Amino Transf (AST/SGOT) 48 U/L Alanine Aminotransferase (ALT/SGPT) 50 U/L Total Bilirubin 1.1 MG/DL Sodium Level 141 MEQ/L 141 MEQ/L 141 MEQ/L Potassium Level 4.0 MEQ/L 3.7 MEQ/L 3.7 MEQ/L Chloride Level 110 MEQ/L 109 MEQ/L 109 MEQ/L Carbon Dioxide Level 20.2 MEQ/L 20.6 MEQ/L 24.6 MEQ/L Anion Gap 11 MEQ/L 11 MEQ/L 7 MEQ/L Estimat Glomerular Filtration Rate 62 ML/MIN 75 ML/MIN 72 ML/MIN Troponin I LESS THAN 0.02 NG/ML B-Type Natriuretic Peptide 280 PG/ML Free Thyroxine 1.30 NG/DL Thyroid Stimulating Hormone 3rd Gen 1.890 uIU/ML Tear Drop Cells 1+ Ovalocytes 1+ Imaging Last Impressions Chest X-Ray 12/05/17 0000 Signed Impressions: Service Date/Time: Tuesday, December 05, 2017 14:19 - CONCLUSION: Mild right middle lobe infiltrate. Leonard Borja MD Objective Remarks GENERAL: Awake alert oriented talkative and cooperative SKIN: Warm and dry. HEAD: Atraumatic. Normocephalic. EYES: Pupils equal and round. No scleral icterus. No injection or drainage. Extraocular muscles intact ENT: No nasal bleeding or discharge. Mucous membranes pink and moist. Tongue is midline NECK: Trachea midline. No JVD. Supple CARDIOVASCULAR: Regular rate and rhythm. S1 and S2 no S3 or S4 RESPIRATORY: No accessory muscle use. Clear to auscultation. Breath sounds equal bilaterally. GASTROINTESTINAL: Abdomen soft, non-tender, nondistended. Hepatic and splenic margins not palpable. MUSCULOSKELETAL: Extremities without clubbing, cyanosis, or edema. No obvious deformities. NEUROLOGICAL: Awake and alert. No obvious cranial nerve deficits. Motor grossly within normal limits. 4 out of 5 muscle strength in the arms and legs. Normal speech. PSYCHIATRIC: Appropriate mood and affect; insight and judgment normal. Procedures EGD PROCEDURE REPORT EXAM DATE: 12/06/2017 PATIENT NAME: Natalia Rivera MR #: [id number] BIRTHDATE: 1940 ATTENDING: Steven Tomlinson MD ORDER #: [id number] REVIEW NURSE: Geri Gonsales and Miguel A Hallman STATUS: inpatient INDICATIONS: The patient is a 76 yr old female here for an EGD due to OB+ stools, Anemia, Hx of GAVE PROCEDURE PERFORMED: EGD w/ control of bleeding MEDICATIONS: None and Per Anesthesia. TOPICAL ANESTHETIC: none CONSENT: The patient understands the risks and benefits of the procedure and understands that these risks include, but are not limited to: sedation, allergic reaction, infection, perforation and/or bleeding. Alternative means of evaluation and treatment include, among others: physical exam, x-rays, and/or surgical intervention. The patient elects to proceed with this endoscopic procedure. medical equipment was checked for proper function. Hand hygiene and appropriate measures for infection prevention was taken. After the risks, benefits and alternatives of the procedure were thoroughly explained, Informed consent was verified, confirmed and timeout was successfully executed by the treatment team. The patient was anesthetized with topical anesthesia and the Pentax [id number] endoscope was introduced through the mouth and advanced to the third portion of the duodenum. Retroflexion was performed and was normal The gastroscope was then slowly withdrawn and removed. 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 Possible small grade I esophageal varicies were noted at the distal esophagus. 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 IMPRESSIONS: 1. 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 Possible small grade I esophageal varicies were noted at the distal esophagus 3. 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 Retroflexion was performed and was normal 5. Doudenitis of bulb RECOMMENDATIONS: 1. Hematocrit 2. Carafate 1 gm po qid ac PATIENT CONDITION: stable DISPOSITION: Inpatient REPEAT EXAM: Return 2 months EGD Medications and IVs Current Medications Sodium Chloride 250 ml @ 15 mls/hr ONCE ONCE IV ; Start 12/05/17 at 17:30; Stop 12/06/17 at 10:09; Status DC Ceftriaxone Sodium 1000 mg/ Sodium Chloride 100 ml @ 200 mls/hr ONCE ONCE IV Last administered on 12/05/17at 17:51; Start 12/05/17 at 17:30; Stop 12/05/17 at 17: 59; Status DC Pantoprazole Sodium 80 mg/ Sodium Chloride 35 ml @ 420 mls/hr Q5M ONCE IV Last administered on 12/05/17at 20:19; Start 12/05/17 at 17:36; Stop 12/05/17 at 17: 40; Status DC Pantoprazole Sodium 80 mg/ Sodium Chloride 100 ml @ 10 mls/hr Q10H IV ; Start 12/05/17 at 17:36; Stop 12/05/17 at 17:53; Status DC Azithromycin 500 mg/Sodium Chloride 250 ml @ 250 mls/hr ONCE ONCE IV Last administered on 12/05/17at 18:40; Start 12/05/17 at 18:00; Stop 12/05/17 at 18:59; Status DC Sodium Chloride (NS Flush) 2 ml UNSCH PRN IV FLUSH FLUSH AFTER USING IV ACCESS Last administered on 12/05/17at 20:19; Start 12/05/17 at 18:00 Sodium Chloride (NS Flush) 2 ml BID IV FLUSH Last administered on 12/06/17at 20: 29; Start 12/05/17 at 21:00 Acetaminophen (Tylenol) 650 mg Q4H PRN PO Headache, fever, pain 1-4; Start 12/05 at 18:00 Ondansetron HCl (Zofran Inj) 4 mg Q6H PRN IVP NAUSEA OR VOMITING; Start at 18:00 Naloxone HCl (Narcan Inj) 0.4 mg UNSCH PRN IV PUSH SEE LABEL COMMENTS; Start at 18:00 Magnesium Hydroxide (Milk Of Magnesia Liq) 30 ml Q12H PRN PO Mild constipation ; Start 12/05/17 at 18:00 Sennosides (Senokot) 17.2 mg Q12H PRN PO Moderate constipation; Start 12/05/17 at 18:00 Bisacodyl (Dulcolax Supp) 10 mg DAILY PRN RECTAL SEVERE CONSITIPATION; Start at 18:00 Lactulose (Lactulose Liq) 30 ml DAILY PRN PO SEVERE CONSITIPATION; Start at 18:00 Pantoprazole Sodium (Protonix) 40 mg Q12HR PO Last administered on 12/07/17at 10 :15; Start 12/05/17 at 21:00 Dextrose (D50w (Vial) Inj) 50 ml UNSCH PRN IV PUSH HYPOGLYCEMIA-SEE COMMENTS; Start 12/06/17 at 01:30; Stop 12/06/17 at 08:35; Status DC Glucagon (Glucagon Inj) 1 mg UNSCH PRN OTHER HYPOGLYCEMIA-SEE COMMENTS; Start 12/06/17 at 01:30; Stop 12/06/17 at 08:35; Status DC Atorvastatin Calcium (Lipitor) 5 mg HS PO Last administered on 12/06/17at 20:28 ; Start 12/06/17 at 21:00 Beclomethasone Dipropionate (Qvar 80 Mcg Inh) 2 puff BID INH Last administered on 12/06/17at 20:28; Start 12/06/17 at 09:00 Dicyclomine HCl (Bentyl) 20 mg TID PO Last administered on 12/07/17at 10:15; Start 12/06/17 at 09:00 Montelukast Sodium (Singulair) 10 mg HS PO Last administered on 12/06/17at 20:28 ; Start 12/06/17 at 21:00 Nebivolol (Bystolic) 10 mg HS PO Last administered on 12/06/17at 20:27; Start at 21:00 Spironolactone (Aldactone) 25 mg DAILY PO Last administered on 12/07/17at 10:15 ; Start 12/06/17 at 09:00 Colestipol HCl (Colestipol Pkt) 1 gm BID PO Last administered on 12/06/17at 21: 28; Start 12/06/17 at 09:00 Ondansetron HCl (Zofran Odt) 4 mg Q6HR PRN PO NAUSEA OR VOMITING; Start at 01:30 Famotidine (Pepcid) 20 mg HS PO Last administered on 12/06/17at 20:27; Start 09/13 at 21:00 Dextrose (D50w (Vial) Inj) 50 ml UNSCH PRN IV PUSH HYPOGLYCEMIA-SEE COMMENTS; Start 12/06/17 at 07:45 Glucagon (Glucagon Inj) 1 mg UNSCH PRN OTHER HYPOGLYCEMIA-SEE COMMENTS; Start 12/06/17 at 07:45 Insulin Aspart (NovoLOG SUPPLEMENTAL SCALE) 1 ACHS SLIDING SCALE SQ ; Start 09/13 at 08:00 Lactated Ringer's 1,000 ml @ 30 mls/hr Q24H PRN IV SEE LABEL COMMENTS; Start at 15:00; Stop 12/09/17 at 14:59 Sodium Chloride 500 ml @ 30 mls/hr [id number] PRN IV SEE LABEL COMMENTS; Start 09/13 at 15:00; Stop 12/09/17 at 14:59 Metoprolol Tartrate (Lopressor) 25 mg PORTER SAMPLE CASE PRN PO SEE LABEL COMMENTS; Start 12/06/17 at 15:00; Stop 12/09/17 at 14:59 Povidone Iodine (Betadine 5% Antisepsis Kit) 1 applic PORTER SAMPLE CASE PRN EACH NARE SEE LABEL COMMENTS; Start 12/06/17 at 15:00; Stop 12/09/17 at 14:59 Chlorhexidine Gluconate (Chlorhexidine 2% Cloth) 3 pack PORTER SAMPLE CASE PRN TOPICAL SEE LABEL COMMENTS; Start 12/06/17 at 15:00; Stop 12/09/17 at 14:59 Flumazenil (Romazicon Inj) 0.2 mg UNSCH X1 PRN IV PUSH OVERSEDATION; Start 09/13 at 15:30; Stop 12/07/17 at 15:29; Status DC Flumazenil (Romazicon Inj) 0.2 mg Q1M PRN IV PUSH OVERSEDATION; Start 12/06/17 at 15:30; Stop 12/07/17 at 15:29; Status DC Naloxone HCl (Narcan Inj) 0.1 mg Q2M PRN IV PUSH OVERSEDATION; Start 12/06/17 at 15:30; Stop 12/07/17 at 15:29; Status DC Sucralfate (Carafate) 1 gm ACHS PO Last administered on 12/07/17at 12:00; Start 12/06/17 at 17:00 Ceftriaxone Sodium 1000 mg/ Sodium Chloride 100 ml @ 200 mls/hr Q24H IV Last administered on 12/07/17at 10:00; Start 12/07/17 at 10:00 A/P Problem List: (1) Symptomatic anemia ICD Code: D64.9 - Anemia, unspecified (2) GI bleeding ICD Code: K92.2 - Gastrointestinal hemorrhage, unspecified Status: Acute Assessment and Plan 76 years old female with Symptomatic anemia. Possible GI bleeding Transfused 2 units PRBC and monitor H/H GI consultation pending for possible Panendoscopy Continue with PPI Status post EGD 1. 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 Possible small grade I esophageal varicies were noted at the distal esophagus 3. 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 Retroflexion was performed and was normal 5. Doudenitis of bulb Pancytopenia. Chronic and Follow up with Hematology outpatient Other chronic medical conditions including Hyperlipidemia/HTN/COPD Continue with outpatient medications Diabetes Mellitus Continue to hold Oral hypoglycemic agents caution with ISS. I had a discussion with the patient regarding her alleged allergy to Insulin, however states she can tolerate a low dose ISS Afib- DR Leone - not on blood thinners per patient due to GI bleed, low platelets Cirrhosis /Hypersplenism Hepatosplenomegaly hx of CVA by imaging studies DVT prophylaxis with SCD. GI prophylaxis: PPI Discharge Planning PENDING GI CLEARANCE AND LAB STABILITY Jason Davis DO Dec 07, 2017 17:25
--- NOTE | 2017-12-07 18:19 | HHI.GIFU ---
GI Follow-up Note Consult Follow-up Subjective: Patient laying in bed comfortably. Tolerating diet. No N/V. No overt GI bleeding Objective: PHYSICAL EXAMINATION: Vitals signs stable No fever NECK: Neck is supple, no JVD, no lymphadenopathy. CHEST: Chest is clear to auscultation and percussion. CARDIAC: Regular rate and rhythm with no murmur gallop or rubs. ABDOMEN: Soft, nondistended, nontender; no hepatosplenomegaly; bowel sounds are present in all four quadrants. EXTREMITIES: No edema. SKIN: no jaundice. CRYSTAL GRINDER: alert and oriented times three. Available Data (labs, X- Rays, Procedues) : Hgb 9.1 ASSESSMENT/PLAN: 1. Anemia/OB+ stools 2. GAVE-s/p APC cautery 3. hx of colon polyps PLAN: 1. Advance diet 2. When tolerating diet and H-H stable pt may be D/C on a PPI and carafate. 3. F/U EGD/APC in the nextb1-2 months It was a pleasure seeing Natalia Rivera Thank you for this consult. Entered by: Steven Martin MD Dec 07, 2017 18:19
[2017-12-07] MEDS: BECLOMETHASONE DIPROPIONATE 80 MCG/ACT 8.7 GM INHALER INH SCH (21:00)
[2017-12-07] MEDS: ATORVASTATIN 10 MG TAB PO SCH (21:31)
[2017-12-07] MEDS: FAMOTIDINE 20 MG TAB PO SCH (21:31)
[2017-12-07] MEDS: guaiFENesin E.R. 600 MG TAB PO SCH (21:31)
[2017-12-07] MEDS: NEBIVOLOL 10 MG TAB PO SCH (21:31)
[2017-12-07] MEDS: MONTELUKAST SODIUM 10 MG TAB PO SCH (21:31)
--- NOTE | 2017-12-07 21:56 | RADRPT ---
EXAM DATE/TIME: 12/07/2017 20:51 [facility] COMPARISON: CHEST PA & LAT, December 05, 2017, 14:19. INDICATIONS : Shortness of breath; pneumonia. MEDICAL HISTORY : Diabetes mellitus type II. Asthma. SURGICAL HISTORY : None acutely relevant ENCOUNTER: Subsequent ACUITY: 3 days PAIN SCORE: 0/10 LOCATION: Bilateral chest FINDINGS: A persistent approximately 1.5 x 3 cm parenchymal opacity is again seen of the right lung base. I bel ieve it is in the lower lobe. A pulmonary mass would be in the differential. A CT of the chest is rec ommended. Left lung remains clear. There is no pleural effusion or pneumothorax on either side. Heart size stable, upper limits of normal. CONCLUSION: Persistent focal right base opacity and a pulmonary mass is not excludable. Noncontrast chest CT is r ecommended. Leonard Curtis MD on December 07, 2017 at 21:52 Board Certified Radiologist. This report was verified electronically.
--- NOTE | 2017-12-07 23:42 | RADRPT ---
EXAM DATE/TIME: 12/07/2017 23:15 [place] COMPARISON: CHEST PA & LAT, December 07, 2017, 20:51. INDICATIONS : Shortness of breath. Abnormal chest x-ray, evaluate for possible mass. RADIATION DOSE: 9.59 CTDIvol (mGy) MEDICAL HISTORY : Cardiovascular disease. Hypertension. SURGICAL HISTORY : None. ENCOUNTER: Initial ACUITY: 1 day PAIN SCALE: 0/10 LOCATION: chest TECHNIQUE: Volumetric scanning of the chest was performed. Using automated exposure control and adjustment of t he mA and/or kV according to patient size, radiation dose was kept as low as reasonably achievable to obtain optimal diagnostic quality images. DICOM format image data is available electronically for r eview and comparison. Follow-up recommendations for detected pulmonary nodules are based at a minimum on nodule size and pa tient risk factors according to Fleischner Society Guidelines. FINDINGS: LUNGS: There is a 1 cm nodular density in the right middle lobe. The rest of the lung peck are grossly saniya ar. PLEURAE: There is nonspecific pleural thickening in the right lung base. No definite pleural effusions. MEDIASTINUM: The heart and great vessels demonstrate no acute abnormality. There is no mediastinal or hilar lymph adenopathy. AXILLAE: Within normal limits. No lymphadenopathy. MUSCULOSKELETAL: Within normal limits for patient age. MISCELLANEOUS: The visualized upper abdominal organs demonstrate no acute abnormality. CONCLUSION: 1. There is a 1 cm nodular density in the right middle lobe. Recommend a PET/CT to evaluate for focal hypermetabolic activity. Pepe Serrano MD on December 07, 2017 at 23:35 Board Certified Radiologist. This report was verified electronically.
[2017-12-08] VITALS (7 sets, daily range): BP systolic 101–136; BP diastolic 53–62; PULSE 68–81; RESP 16–20; TEMP 97.5–97.7; O2SAT 94–98
[2017-12-08] MEDS: INSULIN ASPART SUPPLEMENTAL SCALE SQ SCH ×2 (08:00→13:47)
[2017-12-08 08:21] LABS: AUTOMATED NEUTROPHIL # 1.7 TH/MM3 (1.8-7.7); EOSINOPHIL # 0.1 TH/MM3 (0-0.4); EOSINOPHIL % 2.8 % (0.0-4.0); HEMATOCRIT 26.8 % (35.0-46.0); HEMOGLOBIN 8.3 GM/DL (11.6-15.3); LYMPH % 27.5 % (9.0-44.0); LYMPHOCYTE # 0.9 TH/MM3 (1.0-4.8); MEAN CELL VOLUME 72.3 FL (80.0-100.0); MEAN CORPUSCULAR HEMOGLOBIN 22.5 PG (27.0-34.0); MEAN CORPUSCULAR HGB CONC 31.1 % (32.0-36.0); MEAN PLATELET VOLUME 9.2 FL (7.0-11.0); MONO % 14.7 % (0.0-8.0); MONOCYTE # 0.5 TH/MM3 (0-0.9); PLATELET COUNT 76 TH/MM3 (150-450); RED CELL DISTRIBUTION WIDTH 22.1 % (11.6-17.2); WHITE BLOOD COUNT 3.2 TH/MM3 (4.0-11.0)
[2017-12-08 08:35] LABS: ALBUMIN 2.8 GM/DL (3.4-5.0); AST (GOT) 43 U/L (15-37); BICARBONATE 23.4 MEQ/L (21.0-32.0); BLOOD UREA NITROGEN 8 MG/DL (7-18); CALCIUM 8.3 MG/DL (8.5-10.1); CHLORIDE 110 MEQ/L (98-107); CREATININE 0.83 MG/DL (0.50-1.00); GLOMERULAR FILTRATION RATE 67 ML/MIN (>89); GLUCOSE,RANDOM 117 MG/DL (74-106); MAGNESIUM 1.8 MG/DL (1.5-2.5); SODIUM (NA) 143 MEQ/L (136-145)
[2017-12-08 08:36] LABS: ALT (GPT) 36 U/L (10-53); PHOSPHORUS 3.4 MG/DL (2.5-4.9)
[2017-12-08 08:45] LABS: ALKALINE PHOSPHATASE 82 U/L (45-117); FREE T4 1.56 NG/DL (0.76-1.46); TOTAL PROTEIN 5.7 GM/DL (6.4-8.2)
[2017-12-08] MEDS: PANTOPRAZOLE SOD 40 MG DELAYED RELEASE TAB PO SCH (09:38)
[2017-12-08] MEDS: guaiFENesin E.R. 600 MG TAB PO SCH (09:39)
[2017-12-08] MEDS: DICYCLOMINE HCL 20 MG TAB PO SCH ×2 (09:39→13:45)
[2017-12-08] MEDS: SPIRONOLACTONE 25 MG TAB PO SCH (09:39)
[2017-12-08] MEDS: cefTRIAXone INJ 1,000 MG in SODIUM CHLORIDE 0.9% INJ 100 ML IV SCH (09:39)
[2017-12-08] MEDS: BECLOMETHASONE DIPROPIONATE 80 MCG/ACT 8.7 GM INHALER INH SCH (09:40)
[2017-12-08] MEDS: SODIUM CHLORIDE 0.9% FLUSH 10 ML FLUSH IV FLUSH SCH (09:40)
[2017-12-08] MEDS: COLESTIPOL HCL 5 GM PACKET PO SCH (09:40)
[2017-12-08 09:41] LABS: OVALOCYTES 1+ (NORMAL); TEARDROP RBCS 1+ (NORMAL)
[2017-12-08] MEDS: SUCRALFATE 1 GM TAB PO SCH ×2 (09:41→13:46)
--- NOTE | 2017-12-08 12:00 | HHI.PR ---
Subjective Remarks Follow up Symptomatic Anemia 12/06/17-patient seen and examined, Denies any GI bleed and she was transfused 2 units PRBC 12-07 HAD PROCEDURE EGD ON 12-06 1. 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 Possible small grade I esophageal varicies were noted at the distal esophagus 3. 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 Retroflexion was performed and was normal 5. Doudenitis of bulb 12-08 chest xray show RIGHT LUNG NODULE HAD CT WHICH SHOW A RIGHT MIDDLE LOBE NODULE 1CM- THEY RECOMMENDED OUTPT PET SCAN NO MORE BLEEDING DC TO HOME Objective Vitals Vital Signs Date Time Temp Pulse Resp B/P (MAP) Pulse Ox O2 Delivery O2 Flow Rate FiO2 12/08/17 08:15 98 12/08/17 08:00 97.5 74 17 136/62 (86) 97 12/08/17 04:05 72 12/08/17 04:00 97.7 72 20 101/54 (70) 94 12/08/17 04:00 Room Air 12/08/17 00:09 72 12/08/17 00:00 97.7 75 20 120/56 (77) 94 12/08/17 00:00 Room Air 12/07/17 20:27 77 12/07/17 20:00 Room Air 12/07/17 20:00 98.8 79 21 151/67 (95) 97 12/07/17 16:00 98.3 66 20 125/58 (80) 97 12/07/17 12:00 98.1 66 20 135/62 (86) 95 I/O 12/07/17 12/07/17 12/07/17 12/08/17 12/08/17 12/08/17 07:00 15:00 23:00 07:00 15:00 23:00 Intake Total 240 ml 240 ml Output Total 500 ml 10 ml 600 ml Balance -260 ml -10 ml -360 ml Intake Oral 240 ml 240 ml Output Urine Total 500 ml 10 ml 600 ml # Voids 2 # Bowel Movements 4 4 Result Diagram: 12/08/17 0716 12/08/17 0716 Other Results Laboratory Tests Test 12/05/17 13:45 12/06/17 09:20 12/07/17 11:40 12/08/17 07:16 White Blood Count 3.5 TH/MM3 3.9 TH/MM3 4.5 TH/MM3 3.2 TH/MM3 Red Blood Count 3.28 MIL/MM3 3.84 MIL/MM3 3.98 MIL/MM3 3.70 MIL/MM3 Hemoglobin 6.8 GM/DL 8.7 GM/DL 9.1 GM/DL 8.3 GM/DL Hematocrit 22.6 % 27.8 % 29.0 % 26.8 % Mean Corpuscular Volume 69.0 FL 72.3 FL 72.8 FL 72.3 FL Mean Corpuscular Hemoglobin 20.6 PG 22.7 PG 22.9 PG 22.5 PG Mean Corpuscular Hemoglobin Concent 29.9 % 31.4 % 31.5 % 31.1 % Red Cell Distribution Width 18.4 % 21.0 % 21.7 % 22.1 % Platelet Count 102 TH/MM3 84 TH/MM3 85 TH/MM3 76 TH/MM3 Mean Platelet Volume 11.0 FL 10.5 FL 10.1 FL 9.2 FL Neutrophils (%) (Auto) 63.3 % 56.8 % 62.4 % 54.0 % Lymphocytes (%) (Auto) 21.2 % 27.6 % 20.9 % 27.5 % Monocytes (%) (Auto) 12.7 % 11.9 % 13.5 % 14.7 % Eosinophils (%) (Auto) 1.5 % 2.6 % 2.3 % 2.8 % Basophils (%) (Auto) 1.3 % 1.1 % 0.9 % 1.0 % Neutrophils # (Auto) 2.2 TH/MM3 2.2 TH/MM3 2.8 TH/MM3 1.7 TH/MM3 Lymphocytes # (Auto) 0.7 TH/MM3 1.1 TH/MM3 0.9 TH/MM3 0.9 TH/MM3 Monocytes # (Auto) 0.4 TH/MM3 0.5 TH/MM3 0.6 TH/MM3 0.5 TH/MM3 Eosinophils # (Auto) 0.1 TH/MM3 0.1 TH/MM3 0.1 TH/MM3 0.1 TH/MM3 Basophils # (Auto) 0.0 TH/MM3 0.0 TH/MM3 0.0 TH/MM3 0.0 TH/MM3 CBC Comment AUTO DIFF AUTO DIFF AUTO DIFF AUTO DIFF Differential Comment AUTO DIFF CONFIRMED AUTO DIFF CONFIRMED AUTO DIFF CONFIRMED AUTO DIFF CONFIRMED Platelet Estimate LOW LOW LOW LOW Platelet Morphology Comment ENLARGED ENLARGED NORMAL NORMAL Prothrombin Time 11.5 SEC Prothromb Time International Ratio 1.1 RATIO Activated Partial Thromboplast Time 19.1 SEC Urine Color YELLOW Urine Turbidity HAZY Urine pH 6.0 Urine Specific [place] 1.022 Urine Protein 30 mg/dL Urine Glucose (UA) NEG mg/dL Urine Ketones NEG mg/dL Urine Occult Blood NEG Urine Nitrite POS Urine Bilirubin NEG Urine Urobilinogen LESS THAN 2.0 MG/DL Urine Leukocyte Esterase MOD Urine RBC 2 /hpf Urine WBC 17 /hpf Urine Squamous Epithelial Cells 5 /hpf Urine Bacteria MANY /hpf Urine Mucus FEW /lpf Microscopic Urinalysis Comment CULTURE INDICATED Blood Urea Nitrogen 12 MG/DL 14 MG/DL 8 MG/DL 8 MG/DL Creatinine 0.89 MG/DL 0.75 MG/DL 0.78 MG/DL 0.83 MG/DL Random Glucose 199 MG/DL 72 MG/DL 134 MG/DL 117 MG/DL Total Protein 6.7 GM/DL 5.7 GM/DL Albumin 3.1 GM/DL 2.8 GM/DL Calcium Level 8.5 MG/DL 8.6 MG/DL 8.5 MG/DL 8.3 MG/DL Alkaline Phosphatase 108 U/L 82 U/L Aspartate Amino Transf (AST/SGOT) 48 U/L 43 U/L Alanine Aminotransferase (ALT/SGPT) 50 U/L 36 U/L Total Bilirubin 1.1 MG/DL 2.0 MG/DL Sodium Level 141 MEQ/L 141 MEQ/L 141 MEQ/L 143 MEQ/L Potassium Level 4.0 MEQ/L 3.7 MEQ/L 3.7 MEQ/L 3.7 MEQ/L Chloride Level 110 MEQ/L 109 MEQ/L 109 MEQ/L 110 MEQ/L Carbon Dioxide Level 20.2 MEQ/L 20.6 MEQ/L 24.6 MEQ/L 23.4 MEQ/L Anion Gap 11 MEQ/L 11 MEQ/L 7 MEQ/L 10 MEQ/L Estimat Glomerular Filtration Rate 62 ML/MIN 75 ML/MIN 72 ML/MIN 67 ML/MIN Troponin I LESS THAN 0.02 NG/ML B-Type Natriuretic Peptide 280 PG/ML Free Thyroxine 1.30 NG/DL 1.56 NG/DL Thyroid Stimulating Hormone 3rd Gen 1.890 uIU/ML 2.060 uIU/ML Tear Drop Cells 1+ 1+ Ovalocytes 1+ 1+ Phosphorus Level 3.4 MG/DL Magnesium Level 1.8 MG/DL Imaging Last Impressions Chest X-Ray 12/07/17 0000 Signed Impressions: Service Date/Time: November 20:51 - CONCLUSION: Persistent focal right base opacity and a pulmonary mass is not excludable. Noncontrast chest CT is recommended. Leonard Curtis MD Chest CT 12/07/17 0000 Signed Impressions: Service Date/Time: November 23:15 - CONCLUSION: 1. There is a 1 cm nodular density in the right middle lobe. Recommend a PET/CT to evaluate for focal hypermetabolic activity. Pepe Serrano MD Objective Remarks GENERAL: Awake alert oriented talkative and cooperative SKIN: Warm and dry. HEAD: Atraumatic. Normocephalic. EYES: Pupils equal and round. No scleral icterus. No injection or drainage. Extraocular muscles intact ENT: No nasal bleeding or discharge. Mucous membranes pink and moist. Tongue is midline NECK: Trachea midline. No JVD. Supple CARDIOVASCULAR: Regular rate and rhythm. S1 and S2 no S3 or S4 RESPIRATORY: No accessory muscle use. Clear to auscultation. Breath sounds equal bilaterally. GASTROINTESTINAL: Abdomen soft, non-tender, nondistended. Hepatic and splenic margins not palpable. MUSCULOSKELETAL: Extremities without clubbing, cyanosis, or edema. No obvious deformities. NEUROLOGICAL: Awake and alert. No obvious cranial nerve deficits. Motor grossly within normal limits. 4 out of 5 muscle strength in the arms and legs. Normal speech. PSYCHIATRIC: Appropriate mood and affect; insight and judgment normal. Procedures EGD PROCEDURE REPORT EXAM DATE: 12/06/2017 PATIENT NAME: Natalia Rivera MR #: [id number] BIRTHDATE: 1940 ATTENDING: Steven Tomlinson MD ORDER #: [id number] FRAUD ANALYST: Geri Gonsales and Miguel A Hallman STATUS: inpatient INDICATIONS: The patient is a 76 yr old female here for an EGD due to OB+ stools, Anemia, Hx of GAVE PROCEDURE PERFORMED: EGD w/ control of bleeding MEDICATIONS: None and Per Anesthesia. TOPICAL ANESTHETIC: none CONSENT: The patient understands the risks and benefits of the procedure and understands that these risks include, but are not limited to: sedation, allergic reaction, infection, perforation and/or bleeding. Alternative means of evaluation and treatment include, among others: physical exam, x-rays, and/or surgical intervention. The patient elects to proceed with this endoscopic procedure. medical equipment was checked for proper function. Hand hygiene and appropriate measures for infection prevention was taken. After the risks, benefits and alternatives of the procedure were thoroughly explained, Informed consent was verified, confirmed and timeout was successfully executed by the treatment team. The patient was anesthetized with topical anesthesia and the Tenlegsax [id number] endoscope was introduced through the mouth and advanced to the third portion of the duodenum. Retroflexion was performed and was normal The gastroscope was then slowly withdrawn and removed. 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 Possible small grade I esophageal varicies were noted at the distal esophagus. 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 IMPRESSIONS: 1. 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 Possible small grade I esophageal varicies were noted at the distal esophagus 3. 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 Retroflexion was performed and was normal 5. Doudenitis of bulb RECOMMENDATIONS: 1. Hematocrit 2. Carafate 1 gm po qid ac PATIENT CONDITION: stable DISPOSITION: Inpatient REPEAT EXAM: Return 2 months EGD Medications and IVs Current Medications Sodium Chloride 250 ml @ 15 mls/hr ONCE ONCE IV ; Start 12/05/17 at 17:30; Stop 12/06/17 at 10:09; Status DC Ceftriaxone Sodium 1000 mg/ Sodium Chloride 100 ml @ 200 mls/hr ONCE ONCE IV Last administered on 12/05/17at 17:51; Start 12/05/17 at 17:30; Stop 12/05/17 at 17: 59; Status DC Pantoprazole Sodium 80 mg/ Sodium Chloride 35 ml @ 420 mls/hr Q5M ONCE IV Last administered on 12/05/17at 20:19; Start 12/05/17 at 17:36; Stop 12/05/17 at 17: 40; Status DC Pantoprazole Sodium 80 mg/ Sodium Chloride 100 ml @ 10 mls/hr Q10H IV ; Start 12/05/17 at 17:36; Stop 12/05/17 at 17:53; Status DC Azithromycin 500 mg/Sodium Chloride 250 ml @ 250 mls/hr ONCE ONCE IV Last administered on 12/05/17at 18:40; Start 12/05/17 at 18:00; Stop 12/05/17 at 18:59; Status DC Sodium Chloride (NS Flush) 2 ml UNSCH PRN IV FLUSH FLUSH AFTER USING IV ACCESS Last administered on 12/05/17at 20:19; Start 12/05/17 at 18:00 Sodium Chloride (NS Flush) 2 ml BID IV FLUSH Last administered on 12/08/17at 09: 40; Start 12/05/17 at 21:00 Acetaminophen (Tylenol) 650 mg Q4H PRN PO Headache, fever, pain 1-4; Start 12/05 at 18:00 Ondansetron HCl (Zofran Inj) 4 mg Q6H PRN IVP NAUSEA OR VOMITING; Start at 18:00 Naloxone HCl (Narcan Inj) 0.4 mg UNSCH PRN IV PUSH SEE LABEL COMMENTS; Start at 18:00 Magnesium Hydroxide (Milk Of Magnesia Liq) 30 ml Q12H PRN PO Mild constipation ; Start 12/05/17 at 18:00 Sennosides (Senokot) 17.2 mg Q12H PRN PO Moderate constipation; Start 12/05/17 at 18:00 Bisacodyl (Dulcolax Supp) 10 mg DAILY PRN RECTAL SEVERE CONSITIPATION; Start at 18:00 Lactulose (Lactulose Liq) 30 ml DAILY PRN PO SEVERE CONSITIPATION; Start at 18:00 Pantoprazole Sodium (Protonix) 40 mg Q12HR PO Last administered on 12/08/17at 09 :38; Start 12/05/17 at 21:00 Dextrose (D50w (Vial) Inj) 50 ml UNSCH PRN IV PUSH HYPOGLYCEMIA-SEE COMMENTS; Start 12/06/17 at 01:30; Stop 12/06/17 at 08:35; Status DC Glucagon (Glucagon Inj) 1 mg UNSCH PRN OTHER HYPOGLYCEMIA-SEE COMMENTS; Start 12/06/17 at 01:30; Stop 12/06/17 at 08:35; Status DC Atorvastatin Calcium (Lipitor) 5 mg HS PO Last administered on 12/07/17at 21:31 ; Start 12/06/17 at 21:00 Beclomethasone Dipropionate (Qvar 80 Mcg Inh) 2 puff BID INH Last administered on 12/08/17at 09:40; Start 12/06/17 at 09:00 Dicyclomine HCl (Bentyl) 20 mg TID PO Last administered on 12/08/17at 09:39; Start 12/06/17 at 09:00 Montelukast Sodium (Singulair) 10 mg HS PO Last administered on 12/07/17 21:31 ; Start 12/06/17 at 21:00 Nebivolol (Bystolic) 10 mg HS PO Last administered on 12/07/17 21:31; Start at 21:00 Spironolactone (Aldactone) 25 mg DAILY PO Last administered on 12/08/17at 09:39 ; Start 12/06/17 at 09:00 Colestipol HCl (Colestipol Pkt) 1 gm BID PO Last administered on 12/08/17at 09: 40; Start 12/06/17 at 09:00 Ondansetron HCl (Zofran Odt) 4 mg Q6HR PRN PO NAUSEA OR VOMITING; Start at 01:30 Famotidine (Pepcid) 20 mg HS PO Last administered on 12/07/17at 21:31; Start 09/13 at 21:00 Dextrose (D50w (Vial) Inj) 50 ml UNSCH PRN IV PUSH HYPOGLYCEMIA-SEE COMMENTS; Start 12/06/17 at 07:45 Glucagon (Glucagon Inj) 1 mg UNSCH PRN OTHER HYPOGLYCEMIA-SEE COMMENTS; Start 12/06/17 at 07:45 Insulin Aspart (NovoLOG SUPPLEMENTAL SCALE) 1 ACHS SLIDING SCALE SQ Last administered on 12/07/17at 21:00; Start 12/06/17 at 08:00 Lactated Ringer's 1,000 ml @ 30 mls/hr Q24H PRN IV SEE LABEL COMMENTS; Start at 15:00; Stop 12/09/17 at 14:59 Sodium Chloride 500 ml @ 30 mls/hr [id number] PRN IV SEE LABEL COMMENTS; Start 09/13 at 15:00; Stop 12/09/17 at 14:59 Metoprolol Tartrate (Lopressor) 25 mg [employer]HE[employer] PRN PO SEE LABEL COMMENTS; Start 12/06/17 at 15:00; Stop 12/09/17 at 14:59 Povidone Iodine (Betadine 5% Antisepsis Kit) 1 applic [employer]HE[employer] PRN EACH NARE SEE LABEL COMMENTS; Start 12/06/17 at 15:00; Stop 12/09/17 at 14:59 Chlorhexidine Gluconate (Chlorhexidine 2% Cloth) 3 pack [employer] PRN TOPICAL SEE LABEL COMMENTS; Start 12/06/17 at 15:00; Stop 12/09/17 at 14:59 Flumazenil (Romazicon Inj) 0.2 mg UNSCH X1 PRN IV PUSH OVERSEDATION; Start 09/13 at 15:30; Stop 12/07/17 at 15:29; Status DC Flumazenil (Romazicon Inj) 0.2 mg Q1M PRN IV PUSH OVERSEDATION; Start 12/06/17 at 15:30; Stop 12/07/17 at 15:29; Status DC Naloxone HCl (Narcan Inj) 0.1 mg Q2M PRN IV PUSH OVERSEDATION; Start 12/06/17 at 15:30; Stop 12/07/17 at 15:29; Status DC Sucralfate (Carafate) 1 gm ACHS PO Last administered on 12/08/17at 09:41; Start 12/06/17 at 17:00 Ceftriaxone Sodium 1000 mg/ Sodium Chloride 100 ml @ 200 mls/hr Q24H IV Last administered on 12/08/17at 09:39; Start 12/07/17 at 10:00 Guaifenesin (Mucinex Er) 600 mg BID PO Last administered on 12/08/17at 09:39; Start 12/07/17 at 21:00 Propofol (Diprivan 200 Mg/20 ml Inj) 200 mg STK-MED ONCE IV ; Start 12/06/17 at 12:00; Stop 12/08/17 at 07:31; Status DC Ephedrine Sulfate (ePHEDrine/NS 25 MG/5 ML SYR) 25 mg STK-MED ONCE IV ; Start at 12:00; Stop 12/08/17 at 07:31; Status DC A/P Problem List: (1) Symptomatic anemia ICD Code: D64.9 - Anemia, unspecified (2) GI bleeding ICD Code: K92.2 - Gastrointestinal hemorrhage, unspecified Status: Acute Assessment and Plan 76 years old female with Symptomatic anemia. Possible GI bleeding Transfused 2 units PRBC and monitor H/H GI consultation pending for possible Panendoscopy Continue with PPI Status post EGD 1. 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 Possible small grade I esophageal varicies were noted at the distal esophagus 3. 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 Retroflexion was performed and was normal 5. Doudenitis of bulb Pancytopenia. Chronic and Follow up with Hematology outpatient Other chronic medical conditions including Hyperlipidemia/HTN/COPD Continue with outpatient medications Diabetes Mellitus Continue to hold Oral hypoglycemic agents caution with ISS. I had a discussion with the patient regarding her alleged allergy to Insulin, however states she can tolerate a low dose ISS Afib- DR Leone - not on blood thinners per patient due to GI bleed, low platelets Cirrhosis /Hypersplenism Hepatosplenomegaly hx of CVA by imaging studies NODULE IN RIGHT MIDDLE LOBE 1CM NEEDS OUT PET SCAN DVT prophylaxis with SCD. GI prophylaxis: PPI Discharge Planning DC TO HOME TODAY Jason Davis DO Dec 08, 2017 12:00
[2017-12-08] MEDS ORDERED: RANI150T PO (12:07)
[2017-12-08] MEDS ORDERED: ZOFR4TAB PO (12:07)
[2017-12-08] MEDS ORDERED: CARA1TAB6 PO (12:07)
[2017-12-08] MEDS ORDERED: OMEP40CA2 PO (12:07)
[2017-12-08] MEDS ORDERED: CEFU1TAB20 PO (12:07)
[2017-12-08] MEDS ORDERED: guaiFENesin ER PO (12:07)
--- NOTE | 2017-12-08 12:14 | HHI.DS ---
Discharge Summary Admission Date Dec 05, 2017 at 17:47 Discharge Date: Dec 08, 2017 Admitting Diagnosis anemia, uti, gi bleed (1) Symptomatic anemia ICD Code: D64.9 - Anemia, unspecified Diagnosis: Principal (2) GI bleeding ICD Code: K92.2 - Gastrointestinal hemorrhage, unspecified Diagnosis: Principal Status: Acute (3) Pulmonary nodule, right ICD Code: R91.1 - Solitary pulmonary nodule Diagnosis: Secondary (4) Anemia ICD Code: D64.9 - Anemia Diagnosis: Principal Status: Acute (5) Diabetes ICD Code: E11.9 - Type 2 diabetes mellitus without complications Diagnosis: Principal Status: Acute Procedures EGD PROCEDURE REPORT EXAM DATE: 12/06/2017 PATIENT NAME: Natalia Rivera MR #: [id number] BIRTHDATE: 1940 ATTENDING: Steven Tomlinson MD ORDER #: [id number] ACCESS SERVICE REPRESENTATIVE: Geri Gonsales and Miguel A Hallman STATUS: inpatient INDICATIONS: The patient is a 76 yr old female here for an EGD due to OB+ stools, Anemia, Hx of GAVE PROCEDURE PERFORMED: EGD w/ control of bleeding MEDICATIONS: None and Per Anesthesia. TOPICAL ANESTHETIC: none CONSENT: The patient understands the risks and benefits of the procedure and understands that these risks include, but are not limited to: sedation, allergic reaction, infection, perforation and/or bleeding. Alternative means of evaluation and treatment include, among others: physical exam, x-rays, and/or surgical intervention. The patient elects to proceed with this endoscopic procedure. medical equipment was checked for proper function. Hand hygiene and appropriate measures for infection prevention was taken. After the risks, benefits and alternatives of the procedure were thoroughly explained, Informed consent was verified, confirmed and timeout was successfully executed by the treatment team. The patient was anesthetized with topical anesthesia and the Pentax [id number] endoscope was introduced through the mouth and advanced to the third portion of the duodenum. Retroflexion was performed and was normal The gastroscope was then slowly withdrawn and removed. 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 Possible small grade I esophageal varicies were noted at the distal esophagus. 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 IMPRESSIONS: 1. 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 Possible small grade I esophageal varicies were noted at the distal esophagus 3. 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 Retroflexion was performed and was normal 5. Doudenitis of bulb RECOMMENDATIONS: 1. Hematocrit 2. Carafate 1 gm po qid ac PATIENT CONDITION: stable DISPOSITION: Inpatient REPEAT EXAM: Return 2 months EGD Brief History - From Admission History from patient, ER notes, review of medical records. 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 no blood in urine no nausea or vomiting not on blood thinners no abdominal pain CBC/BMP: 12/08/17 0716 12/08/17 0716 Significant Findings Laboratory Tests Test 12/05/17 13:45 12/06/17 09:20 12/07/17 11:40 12/08/17 07:16 White Blood Count 3.5 TH/MM3 (4.0-11.0) 3.9 TH/MM3 (4.0-11.0) 3.2 TH/MM3 (4.0-11.0) Red Blood Count 3.28 MIL/MM3 (4.00-5.30) 3.84 MIL/MM3 (4.00-5.30) 3.98 MIL/MM3 (4.00-5.30) 3.70 MIL/MM3 (4.00-5.30) Hemoglobin 6.8 GM/DL (11.6-15.3) 8.7 GM/DL (11.6-15.3) 9.1 GM/DL (11.6-15.3) 8.3 GM/DL (11.6-15.3) Hematocrit 22.6 % (35.0-46.0) 27.8 % (35.0-46.0) 29.0 % (35.0-46.0) 26.8 % (35.0-46.0) Mean Corpuscular Volume 69.0 FL (80.0-100.0) 72.3 FL (80.0-100.0) 72.8 FL (80.0-100.0) 72.3 FL (80.0-100.0) Mean Corpuscular Hemoglobin 20.6 PG (27.0-34.0) 22.7 PG (27.0-34.0) 22.9 PG (27.0-34.0) 22.5 PG (27.0-34.0) Mean Corpuscular Hemoglobin Concent 29.9 % (32.0-36.0) 31.4 % (32.0-36.0) 31.5 % (32.0-36.0) 31.1 % (32.0-36.0) Red Cell Distribution Width 18.4 % (11.6-17.2) 21.0 % (11.6-17.2) 21.7 % (11.6-17.2) 22.1 % (11.6-17.2) Platelet Count 102 TH/MM3 (150-450) 84 TH/MM3 (150-450) 85 TH/MM3 (150-450) 76 TH/MM3 (150-450) Monocytes (%) (Auto) 12.7 % (0.0-8.0) 11.9 % (0.0-8.0) 13.5 % (0.0-8.0) 14.7 % (0.0-8.0) Lymphocytes # (Auto) 0.7 TH/MM3 (1.0-4.8) 0.9 TH/MM3 (1.0-4.8) 0.9 TH/MM3 (1.0-4.8) Platelet Estimate LOW (NORMAL) LOW (NORMAL) LOW (NORMAL) LOW (NORMAL) Platelet Morphology Comment ENLARGED (NORMAL) ENLARGED (NORMAL) Activated Partial Thromboplast Time 19.1 SEC (24.3-30.1) Urine Turbidity HAZY (CLEAR) Urine Protein 30 mg/dL (NEG-TRACE) Urine Nitrite POS (NEG) Urine Leukocyte Esterase MOD (NEG) Urine WBC 17 /hpf (0-5) Urine Bacteria MANY /hpf (NONE) Urine Mucus FEW /lpf (OCC) Random Glucose 199 MG/DL (74-106) 72 MG/DL (74-106) 134 MG/DL (74-106) 117 MG/DL (74-106) Albumin 3.1 GM/DL (3.4-5.0) 2.8 GM/DL (3.4-5.0) Aspartate Amino Transf (AST/SGOT) 48 U/L (15-37) 43 U/L (15-37) Total Bilirubin 1.1 MG/DL (0.2-1.0) 2.0 MG/DL (0.2-1.0) Chloride Level 110 MEQ/L (98-107) 109 MEQ/L (98-107) 109 MEQ/L (98-107) 110 MEQ/L (98-107) Carbon Dioxide Level 20.2 MEQ/L (21.0-32.0) 20.6 MEQ/L (21.0-32.0) Estimat Glomerular Filtration Rate 62 ML/MIN (>89) 75 ML/MIN (>89) 72 ML/MIN (>89) 67 ML/MIN (>89) Troponin I LESS THAN 0.02 NG/ML B-Type Natriuretic Peptide 280 PG/ML (0-100) Tear Drop Cells 1+ (NORMAL) 1+ (NORMAL) Ovalocytes 1+ (NORMAL) 1+ (NORMAL) Neutrophils # (Auto) 1.7 TH/MM3 (1.8-7.7) Total Protein 5.7 GM/DL (6.4-8.2) Calcium Level 8.3 MG/DL (8.5-10.1) Free Thyroxine 1.56 NG/DL (0.76-1.46) Imaging Last Impressions Chest X-Ray 12/07/17 0000 Signed Impressions: Service Date/Time: November 20:51 - CONCLUSION: Persistent focal right base opacity and a pulmonary mass is not excludable. Noncontrast chest CT is recommended. Leonard Curtis MD Chest CT 12/07/17 0000 Signed Impressions: Service Date/Time: November 23:15 - CONCLUSION: 1. There is a 1 cm nodular density in the right middle lobe. Recommend a PET/CT to evaluate for focal hypermetabolic activity. Pepe Serrano MD PE at Discharge GENERAL: Awake alert oriented talkative and cooperative SKIN: Warm and dry. HEAD: Atraumatic. Normocephalic. EYES: Pupils equal and round. No scleral icterus. No injection or drainage. Extraocular muscles intact ENT: No nasal bleeding or discharge. Mucous membranes pink and moist. Tongue is midline NECK: Trachea midline. No JVD. Supple CARDIOVASCULAR: Regular rate and rhythm. S1 and S2 no S3 or S4 RESPIRATORY: No accessory muscle use. Clear to auscultation. Breath sounds equal bilaterally. GASTROINTESTINAL: Abdomen soft, non-tender, nondistended. Hepatic and splenic margins not palpable. MUSCULOSKELETAL: Extremities without clubbing, cyanosis, or edema. No obvious deformities. NEUROLOGICAL: Awake and alert. No obvious cranial nerve deficits. Motor grossly within normal limits. 4 out of 5 muscle strength in the arms and legs. Normal speech. PSYCHIATRIC: Appropriate mood and affect; insight and judgment normal. Hospital Course History from patient, ER notes, review of medical records. 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 Possible small grade I esophageal varicies were noted at the distal esophagus 3. 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 Retroflexion was performed and was normal 5. Doudenitis of bulb 1-12 chest xray show RIGHT LUNG NODULE HAD CT WHICH SHOW A RIGHT MIDDLE LOBE NODULE 1CM- THEY RECOMMENDED OUTPT PET SCAN NO MORE BLEEDING DC TO HOME Pt Condition on Discharge: Good Discharge Disposition: Discharge Home Discharge Time: > 30 minutes Discharge Instructions DIET: Follow Instructions for: Heart Healthy Diet, Diabetic Diet Speech Therapy-Diet Recommends: Regular Activities you can perform: Regular-No Restrictions Follow up Referrals: Gastroenterology - 1 Month with Steven Tomlinson MD PCP Follow-up - 3-5 Days with Kayleen Rasmussen DO New Orders: PET, WHOLE BODY New Medications: Cefuroxime (Cefuroxime) 500 Mg Tab 500 MG PO BID for Infection for 7 Days, #14 TAB 0 Refills Sucralfate (Carafate) 1 Gram Tab 1 GM PO QID for Ulcer Prevention, #120 TAB 0 Refills On empty stomach [guaiFENesin ER] () 600 MG TABCR 600 MG PO BID for Cough, #60 TAB Changed Medications: Omeprazole (Omeprazole) 40 Mg Cap 40 MG PO BID for Heartburn Management, #60 CAP 0 Refills (Changed from: DAILY; 30) Continued Medications: Albuterol 8.5 GM Inh (Proair Hfa 8.5 GM Inh) 90 Mcg/Act Aer 2 PUFF INH Q4-6H PRN for SHORTNESS OF BREATH, #1 INHALER 0 Refills 108 mcg/actuation Ascorbic Acid (Vitamin C) 250 Mg Chew 1000 MG PO DAILY for Nutritional Supplement, #30 TAB 0 Refills Atorvastatin (Atorvastatin) 10 Mg Tab 5 MG PO HS every other night for Cholesterol Management, #30 TAB 0 Refills Beclomethasone Inh (Qvar Inh) 80 Mcg/Act Aero 2 PUFF INH BID for Asthma Management, #1 INHALER 0 Refills Colestipol (Colestipol) 1 Gram Tab 1 GM PO BID for Cholesterol Management, #120 TAB 0 Refills Dicyclomine (Dicyclomine) 20 Mg Tab 20 MG PO TID for Bowel Management, #90 TAB 0 Refills Fish Oil-Cholecalciferol ([place]-3 Fish Oil/Vitamin) 1,000-1,000 Mg Cap 1200 MG PO DAILY for Nutritional Supplement, CAP 0 Refills Glimepiride (Glimepiride) 4 Mg Tab 4 MG PO BIDAC for Blood Sugar Management, #60 TAB 0 Refills Montelukast (Montelukast) 10 Mg Tab 10 MG PO HS, #30 TAB 0 Refills Nebivolol (Bystolic) 10 Mg Tab 10 MG PO HS for Blood Pressure Management, #30 TAB 0 Refills Ondansetron (Zofran) 4 Mg Tab 4 MG PO Q6HR PRN for NAUSEA OR VOMITING, #20 TAB 0 Refills (This prescription has been renewed) Ranitidine (Ranitidine) 150 Mg Tab 150 MG PO HS for Heartburn Management, #30 TAB 0 Refills (This prescription has been renewed) Sitagliptin-Metformin ER (Janumet Xr) 50-1,000 Mg Tab 1 TAB PO HS for Blood Sugar Management, #30 TAB 0 Refills Spironolactone (Spironolactone) 25 Mg Tab 25 MG PO DAILY, #30 TAB 0 Refills [flutacasone] () [zyrtec] () 10 MG PO HS Jason Davis DO Dec 08, 2017 12:14
--- NOTE | 2017-12-08 14:46 | HHI.GIFU ---
GI Follow-up Note Consult Follow-up Subjective:patient was seen earlier this morning but I was not able to do this note until this afternoon. Patient tolerating a diet and has no overt GI bleeding Objective: PHYSICAL EXAMINATION: Vitals signs stable No fever CHEST: Chest is clear to auscultation and percussion. CARDIAC: Regular rate and rhythm with no murmur gallop or rubs. ABDOMEN: Soft, nondistended, nontender; no hepatosplenomegaly; bowel sounds are present in all four quadrants. EXTREMITIES: No clubbing, cyanosis, or edema. SKIN: Normal; no rash; no jaundice. CASH REGISTER MECHANIC: No focal deficits; alert and oriented times three. Available Data (labs, X- Rays, Procedues) : hemoglobin 8.3stable ASSESSMENT/PLAN: 1. Anemia/OB+ stools- patient still has the thickened amount of petechiae/GAVE in her stomach and will need followup procedures see below 2. GAVE-s/p APC cautery 3. hx of colon polyps PLAN: 1. continue diet 2. When tolerating diet and H-H stable pt may be D/C on a PPI and carafate. 3. F/U EGD/APC in the next 1 month It was a pleasure seeing Natalia Rivera Thank you for this consult. Entered by: Steven Martin MD Dec 08, 2017 14:46
[2017-12-08 16:03] LABS: HEMOGLOBIN A1C 6.3 % (4.3-6.0)
== END 2017-12-08 18:11 | disposition home or self-care (01) | DRG 378 ==
LOC: NEPC 12:37 → NEDA 17:47 → N04B 23:37
PROVIDERS: ADMIT Hospitalist; ATTEND Hospitalist
PROC: 30233N1 Transfusion of Nonautologous Red Blood Cells into Peripheral Vein, Percutaneous Approach (ICD-10-PCS; 2017-12-05)
PROC: 0W3P8ZZ Control Bleeding in Gastrointestinal Tract, Via Natural or Artificial Opening Endoscopic (ICD-10-PCS; principal; 2017-12-06 14:35)
DX: K31.811 Angiodysplasia of stomach and duodenum with bleeding (principal); D61.818 Other pancytopenia; I48.91 Unspecified atrial fibrillation; J44.9 Chronic obstructive pulmonary disease, unspecified; R16.2 Hepatomegaly with splenomegaly, not elsewhere classified; K74.60 Unspecified cirrhosis of liver; N39.0 Urinary tract infection, site not specified; K22.70 Barrett's esophagus without dysplasia; K29.80 Duodenitis without bleeding; R91.1 Solitary pulmonary nodule; I85.00 Esophageal varices without bleeding; E11.9 Type 2 diabetes mellitus without complications; E78.5 Hyperlipidemia, unspecified; I10 Essential (primary) hypertension; D73.1 Hypersplenism; Z79.84 Long term (current) use of oral hypoglycemic drugs; Z96.651 Presence of right artificial knee joint; Z88.2 Allergy status to sulfonamides; Z86.73 Personal history of transient ischemic attack (TIA), and cerebral infarction without residual deficits; Z87.891 Personal history of nicotine dependence
CPT/HCPCS: 36430; 71046; 71250; 80048; 80053; 81001; 82948; 83036; 83735; 83880; 84100; 84439; 84443; 84484; 85025; 85610; 85730; 86850; 86900; 86901; 86920; 87040; 87077; 87086; 87186; 93005; 94150; C9113; J0456; J0696; J1815; J7050; P9016